=== PATIENT | female | born 1990 | race Caucasian/White ===

== ENCOUNTER 2025-04-14 08:58 | Outpatient (REF) | payer MEDICAID, SELFPAY ==
--- OUTSIDE RECORDS SUMMARY | 2025-04-09 10:45 | XMS_ITS | Encounter Summary ---
Author Organization [employer] Address [address] [place] [address] [facility] [place] [address] Care Team Providers Care Labeling Specialist Name Role Phone Miller Bynum CNP Primary Care Provider [phone] Reason for Referral * Imaging (Routine) - Authorized Specialty Diagnoses / Procedures Referred By Elias tolentino Referred To Contact Radiology Diagnoses History of malignant neoplasm of appendix Procedures CT Abdomen Pelvis w/ Contrast Miller Bynum CNP [address] [place] [address] Phone: tel: fax: [facility] [address] [facility], [address] [place] [address] Phone: tel: fax: Referral ID Status Reason Start Date Expiration Date V isits Requested Visits Authorized [id number] Authorized 04/09/2025 04/09/2026 1 1 Encounter Details Date Type Department Care Team (Late st Contact Info) Description 04/09/2025 10:45 AM EST Office Visit [facility] [address] [place] [address] Miller Bynum CNP [address] [place] [address] Encounter to establish care (Primary Dx); History of malignant neoplasm of appendix; Other form of scoliosis of thoracic spine; Encounter for immunization; Dietary counseling; Exercise counseling; Class 2 obesity with body mass index (BMI) of 36.0 to 36.9 in adult, unspecified obesity type, unspecified whether serious comorbidity present; Encounter for screening examination for sexually transmitted disease Social History Tobacco Use Types Packs/Day Years Used Date Smoking Tobacco: Never Passive Smoke Exposure: Never Smokeless Tobacco: Never Tobacco Cessation:Counseling Given: Not Answered Depression Answer Date Recorded Patient Health Questionnaire-9 Score 1 04/09/2025 Patient Health Questionnaire-9 Score 1 04/09/2025 Last PHQ-9: Questionnaire Data Not on file 1 06/09/2024 Housing Stability Answer Date Recorded What is your housing situation today? I have mignon guzman 04/09/[address] you li ve. Do you have problems with any of the following? None of the above 04/09/2025 Food Insecurity Answer Date Recorded Within the past 12 months, y ou worried that your food would run out before you got money to buy more: Never True 04/09/2025 Within the past 12 months,th e food you bought just didn't last and you didn't have enough money to get more: Never True Transportation Answer Date Recorded In the past 12 months, has l ack of transportation kept you from medical appts, meetings, work or from getting things needed for daily living? No 04/09/2025 Utilities Answer Date Recorded In the past 12 months, has t he electric, gas, oil or water company threatened to shut off services in your home? No 04/09/2025 Depression Answer Date Recorded Patient Health Questionnaire-2 Score 0 04/09/2025 Internet Access Answer Date Recorded Internet Access Q1 Yes 04/09/2025 Internet Access Q2 Not on file 04/09/2025 Comments No Intention Date Recorded No desire to become (finding) 1 06/09/2024 Sex and Gender Information Value Date Recorded Sex Assigned at Female 03/02/2024 11:33 AM EDT Legal Sex Female 6:52 PM EDT Gender Identity Female 03/02/2024 11:33 AM EDT Sexual Orientation Straight 03/02/2024 11 :34 AM EDT documented as of this encounter Last Filed Vital Signs Vital Sign Reading Time Taken Comments Blood Pressure 126/84 04/09/2025 10:31 AM EST Pulse 80 04/09/2025 10:31 AM EST Temperature 36.7 C (98 F) 04/09/2025 10:31 AM EST Respiratory Rate 16 04/09/2025 10:31 AM EST Oxygen Saturation 99% 04/09/2025 10:31 AM EST Inhaled Oxygen Concentration - - Weight 93 kg (205 lb) 04/09/2025 10:31 AM EST Height 160 cm (5' 3 ) 04/09/2025 10:31 AM EST Body Mass Index 36.31 04/09/2025 10:31 AM EST documented in this encounter Functional Status * Over the past 2 weeks, how often have you been bothered by any of the following problems? Question Answer Date of Assessment Author Patient Health Questionnaire -2 Score 0 04/09/2025 11:13 AM EST Sa chai Mehta [place] * Little interest or pleasure in doing things Answer Date of Assessment Author Not at all 04/09/2025 11:13 AM Sosa Dempsey [place] * Feeling down, depressed, or hopeless Answer Date of Assessment Author Not at all 04/09/2025 11:13 AM Sosa Dempsey [place] * Trouble falling or staying asleep, or sleeping too much Answer Date of Assessment Author Not at all 04/09/2025 11:13 AM Sosa Dempsey [place] * Feeling tired or having little energy Answer Date of Assessment Author Several days 04/09/2025 11:13 AM Sosa Dempsey MA * Poor appetite or overeating Answer Date of Assessment Author Not at all 04/09/2025 11:13 AM Sosa Dempsey MA * Feeling bad about yourself - or that you are a failure or have let yourself or your family down Answer Date of Assessment Author Not at all 04/09/2025 11:13 AM Sosa Dempsey MA * Trouble concentrating on things, such as reading the newspaper or watching television Answer Date of Assessment Author Not at all 04/09/2025 11:13 AM Sosa Dempsey MA * Moving or speaking so slowly that other people could have noticed? Or the opposite - being so fidgety or restless that you have been moving around a lot more than usual. Answer Date of Assessment Author Not at all 04/09/2025 11:13 AM Sosa Dempsey MA * Thoughts that you would be better off or hurting yourself in some way Answer Date of Assessment Author Not at all 04/09/2025 11:13 AM Sosa Dempsey MA * Patient Health Questionnaire-9 Score Answer Date of Assessment Author 1 04/09/2025 11:13 AM Sosa Dempsey MA * Over the last 2 weeks, how often have you been bothered by any of the following problems? Question Answer Date of Assessment Author Feeling nervous, anxious, or on edge 0 04/09/2025 11:13 AM Sa chai Carrera MA Not being able to stop or control worrying 0 04/09/2025 11:13 AM Sa chai Carrera MA Worrying too much about different things 0 04/09/2025 11:13 AM Sa chai Carrera MA Trouble relaxing 0 04/09/2025 11:13 AM Sosa Carrera MA Being so restless that it is hard to sit still 0 04/09/2025 11:13 AM Sa chai Carrera MA Becoming easily annoyed or irritable 0 04/09/2025 11:13 AM Sa chai Carrera MA Feeling afraid as if somethi ng awful might happen 0 04/09/2025 11:13 AM Sa chai Carrera MA AUGUSTINE-7 Total Score 0 04/09/2025 11:13 AM Sosa Carrera MA * How difficult have these problems made it for you to do your work, take care of things at home, or get along with other people? Answer Date of Assessment Author Not difficult at all 04/09/2025 11:13 AM Sosa Doll MA documented as of this encounter Progress Notes * Miller Bynum CNP - 04/09/2025 10:45 AM EST Subjective: Ester Butt is a 34 y.o. female with PMH of RLE DVT, obesity, thoracic scoliosis, neuroendocrine neoplasm of appendix, herpes simplex virus 2, who presents to the office for a new patient visit. Previous PCP unknown. Interim history: History of RLE DVT was on initial lovenox followed by maribelsusana for one time, this happened 5 years ago, she was then disontinued on anticoags as condition resolved. Current concerns: Would like update to scoliosis survery Would like updated imaging of appendix. Pt reports she had history of mass on her appendix and she had appendectomy in - pt unsure of exact date. She had update CT in 2022 to r/o metastatic disease. (See below) She denies any current symptoms of abdominal pain, unintended weight loss. Impression 1. Status post appendectomy metastatic disease in the abdomen or pelvis. 2. Increased hepatic steatosis. 3. Postovulatory appearance to the uterus with a left-sided corpus luteum. 4.. Additional details as above. Problem List[1] Surgical History[2] Family History[3] Social History Living situation: has secure housing Employment/Education: not reported Diet/exercise: Substance use: -alcohol : 1-2 drinks socially -tobacco : none -opioids : none Sexual activity: AMAB partner Contraception: none, partner has vasectomy scheduled for next month. Mental health: Patient Health Questionnaire-9 Score: 1 (04/09/2025 11:13 AM) Patient Health Questionnaire-2 Score: 0 (04/09/2025 11:13 AM) Thoughts that you would be better off or hurting yourself in some way: Not at all (04/09/2025 11:13 AM) AUGUSTINE-7 Total Score: 0 (04/09/2025 11:13 AM) Patient's last menstrual period was 03/23/2025. Regular occurring each month Allergies[4] Review of Systems Vitals: 04/09/25 1031 BP: 126/84 BP Location: Left arm Patient Position: Sitting BP Cuff Size: Large adult Pulse: 80 Resp: 16 Temp: 98 ??F (36.7 ??C) TempSrc: Oral SpO2: 99% Weight: 205 lb (93 kg) Height: 5' 3 (1.6 m) Physical Exam Constitutional: Appearance: Normal appearance. She is normal weight. Cardiovascular: Rate and Rhythm: Normal rate and regular rhythm. Pulses: Normal pulses. Heart sounds: Normal heart sounds. No murmur heard. No friction rub. No gallop. Pulmonary: Effort: Pulmonary effort is normal. No respiratory distress. Breath sounds: Normal breath sounds. No wheezing or rales. Neurological: General: No focal deficit present. Mental Status: She is alert and oriented to person, place, and time. Psychiatric: Mood and Affect: Mood normal. Behavior: Behavior normal. Thought Content: Thought content normal. Judgment: Judgment normal. Assessment & Plan Encounter to establish care 34 y/o F with history of scoliosis and neuroendocrine neoplasm of appendix with no acute abnormalities on exam Routine Screening and Health Maintenance Optometry: No, will request appointment at [facility] vision [facility]. Dentist: Yes ASCVD risk: 34 y.o. femaleobese Lab Review: orders written for new lab studies as appropriate; see orders Routine Cancer Screening Breast CA: not yet indicated based on age Cervical CA: last pap 08/2018 NILM, due, will complete at f/u Colon CA: not yet indicated based on age Lung CA: Orders: HIV-1/2 Antigen and Antibodies, Fourth Generation, with Reflexes; Future Hepatitis C Antibody with Reflex to HCV, RNA, Quantitative, Real-Time PCR; Future CBC auto differential; Future Comprehensive Metabolic Panel; Future Lipid Panel, Standard; Future Hemoglobin A1c; Future History of malignant neoplasm of appendix Will update imaging to r/o metastatic disease. Orders: CT Abdomen Pelvis w/ Contrast; Future Other form of scoliosis of thoracic spine Will update XR scoliosis survery Orders: XR Scoliosis survey; Future Encounter for immunization Orders: FLU VACCINE TRIVALENT [id number] (Fluarix) 19 yrs + Dietary counseling Dietary Recommendations: Fruits, vegetables, whole grains, protein foods, and fat-free or low-fat dairy products are healthychoices. Eat different types of protein foods in your diet. This can include seafood, lean meats, poultry, beans, peas, lentils, nuts, seeds, soy products, and eggs. Limit foods and beverages higher in added sugars, saturated fat, and sodium. Exercise counseling Exercise Recommendations: At least 150 minutes of moderate-intensity physical activity per week, or an equivalent combinationof moderate- and vigorous-intensity activity Class 2 obesity with body mass index (BMI) of 36.0 to 36.9 in adult, unspecified obesity type, unspecified whether serious comorbidity present Diet and exercise counseling provided. Current Medications[5] Immunization History Administered Date(s) Administered Influenza Injectable Quadrivalant Preservative Free IIV4 MDCK 01/27/2020 Influenza injectable quadrivalent preservative free 04/30/2022 Influenza, seasonal, injectable, preservative free 03/09/2010, 02/06/2012, 02/24/2013, 05/27/2013, 03/02/2015, 06/15/2016, 04/09/2025 PPD Test 10/26/2013, 07/21/2014, 08/16/2015, 06/05/2016 Tdap 12/17/2011, 03/31/2015, 02/23/2020, 08/20/2022 Follow up in about 1 month (around 05/09/2025) for pap smear . [1] Patient Active Problem List Diagnosis Changing nevus Enlarged thyroid gland History of herpes simplex type 2 infection Neuroendocrine neoplasm of appendix (HCC) Obesity (BMI 30.0-34.9) Pityriasis Right leg DVT (CMS/HCC) (HCC) Thoracic scoliosis [2] Past Surgical History: Procedure Laterality Date APPENDECTOMY 04/09/2019 [3] Family History Problem Relation Name Age of Onset Hypertension Mother Diabetes Mother Diabetes Daughter Diabetes Maternal Grandmother [4] No Known Allergies [5] No current outpatient medications on file. No current facility-administered medications for this visit. documented in this encounter Miscellaneous Notes * Assessment & Plan Note - Miller Bynum CNP - 04/09/2025 10:45 AM EST Associated Problem(s): Thoracic scoliosis Will update XR scoliosis survery Orders: XR Scoliosis survey; Future * Addendum Note - Miller Bynum CNP - 04/09/2025 10:45 AM ESTAddended by: MILLER BYNUM on: 04/09/2025 11:33 AM Modules accepted: Orders documented in this encounter Plan of Treatment Upcoming Encounters Date Type Department Care Team (Late st Contact Info) Description 05/13/2025 9:00 AM EST Procedure Visit [facility] [address] [place] [address] Fletcher Chandrakantbullfrancisco, [employer] MANAGER [address] [place] [address] Scheduled Orders Name Type Priority Associated Diagnoses Orde r Schedule HIV-1/2 Antigen and Antibodies, Fourth Generation, with Reflexes Lab Routine Encounter to establish care Expected: 04/09/2025 (Approximate), Expires: 04/09/2026 Hepatitis C Antibody with Reflex to HCV, RNA, Quantitative, Real-Time PCR Lab Routine Encounter to establish care Expected: 04/09/2025, Expires: 04/09/2026 CT Abdomen Pelvis w/ Contrast Imaging Routine History of malignant neoplasm of appendix Expected: 04/09/2025, Expires: 04/09/2026 XR Scoliosis survey Imaging Routine Other form of scoliosis of thoracic spine Expected: 04/09/2025, Expires: 04/09/2026 Chlamydia/N. Gonorrhoeae RNA, TMA, Vaginal Microbiology Routine Encounter for screening examination for sexually transmitted disease Ordered: 04/09/2025 RPR (Monitor) with Reflex to Titer Lab Routine Encounter for screening examination for sexually transmitted disease Expected: 04/09/2025, Expires: 04/09/2026 Hepatitis B Surface Antibody, Qualitative Lab Routine Encounter for screening examination for sexually transmitted disease Expected: 04/09/2025 (Approximate), Expires: 04/09/2026 Hepatitis B Core Antibody, Total Lab Routine Encounter for screening examination for sexually transmitted disease Expected: 04/09/2025 (Approximate), Expires: 04/09/2026 Hepatitis B surface antigen, EIA Lab Routine Encounter for screening examination for sexually transmitted disease Expected: 04/09/2025 (Approximate), Expires: 04/09/2026 documented as of this encounter Procedures Procedure Name Priority Date/Time Associated Diagnosis Comments CBC WITH AUTO DIFFERENTIAL Routine 04/14/2025 9:02 AM EST Encounter to establish care HEMOGLOBIN A1C Routine 04/14/2025 9:02 AM EST Encounter to establish care LIPID PANEL, STANDARD Routine 04/14/2025 9:02 AM EST Encounter to establish care COMPREHENSIVE METABOLIC PANEL Routine 04/14/2025 9:02 AM EST Encounter to establish care documented in this encounter Results * Hemoglobin A1c (04/14/2025 9:02 AM EST) Hemoglobin A1c 5.5 <6.0 % [facility] Comment:Hemoglobin A1C Refer ence Range Adults: 4.8 - 6.0 % Non diabetic: < 6.0 % Goal: < 7.0 %Additional Action Suggested: > 8.0 %Note: Hemoglobin A1c results are invalid for patients with abnormal amounts of HbF. Blood transfusions may impact the HbA1c concentration in the patient sample. Estimated Average Glucose 111 mg/dL [facility] Comment:eAG = Estimated ave rage glucose which is %A1C expressed asaverage glucose, using the formula of the L2O-QngpnhcGrfjysz Glucose study (ADAG), Diabetes Care, Vol.31,#8,Dec. 2007 Blood Venous blood specimen / Unknown 04/14/2025 9:02 AM EST 04/14/2025 2:06 PM EST [facility] LAB BLOOD ORDERABLES Chio l Result [facility] [address] [place] [phone] * (ABNORMAL) Lipid Panel, Standard (04/14/2025 9:02 AM EST) Triglycerides 153(H) <150 mg/dL [facility] Comment:Desirable Triglyceri de: less than 150 mg/dLBorderline High Triglyceride 150-199 mg/dLHigh Triglyceride: 200-499 mg/dLVery High Triglyceride: greater than or equal to 5OO mg/dL Cholesterol 194 <200 mg/dL [facility] Comment:Desirable Cholestero l: less than 200 mg/dLBorderline High Cholesterol: 200-239 mg/dLHigh Cholesterol: greater than 239 mg/dL LDL Cholesterol Calculated 129(H) <100 mg/dL [facility] Comment:Desirable LDL: less than 100 mg/dLNear Optimal/Above Optimal LDL: 110- 129 mg/dLBorderline High LDL: 130-159 mg/dLHigh LDL: 160-189 mg/dLVery High LDL: greater than or equal to 190 mg/dL HDL Cholesterol 35(L) >40 mg/dL [facility] Comment:Desirable HDL: great er than 40 mg/dL Note: This HDL assay may give artificially low results in patients with liver disease. Blood Venous blood specimen / Unknown 04/14/2025 9:02 AM EST 04/14/2025 2:06 PM EST Chandrakantfrancisco Bynum [facility] LAB BLOOD ORDERABLES Chio stanton Result [facility] [address] [place] [address] [phone] * (ABNORMAL) Comprehensive Metabolic Panel (04/14/2025 9:02 AM EST) Sodium 139 135 - 145 mmol/L [facility] Potassium 4.3 3.3 - 5.1 mmol/L [facility] Chloride 107 96 - 108 mmol/L [facility] Carbon Dioxide 26 22 - 29 mmol/L [facility] Anion Gap 10(L) 12 - 20 [facility] Urea Nitrogen (BUN) 9 9 - 16 mg/dL [facility] Creatinine, Serum 0.63 0.5 - 1.4 mg/dL [facility] Estimated Glomerular Filt Rate >60 [facility] Comment:Chronic Kidney Disea se: Estimated GFR < 60 mL/min/[id number] Kidney Disease: Estimated GFR < 15 mL/min/1.73m2 Glucose 88 60 - 115 mg/dL [facility] Calcium 9.3 8.4 - 10.2 mg/dL [facility] Bilirubin, Total 0.3 0.0 - 1.0 mg/dL [facility] Aspartate Amino Transferase 32(H) 5 - 31 U/L [facility] Alanine Aminotransferase 28 0 - 31 U/L [facility] Total Protein 7.4 6.5 - 8.0 g/dL [facility] Albumin Level 4.3 3.5 - 5.0 g/dL [facility] Alkaline Phosphatase 61 39 - 117 U/L [facility] Blood Venous blood specimen / Unknown 04/14/2025 9:02 AM EST 04/14/2025 2:06 PM EST Chandrakantfrancisco [facility] LAB BLOOD ORDERABLES Chio l Result [facility] [address] [place] [address] [phone] * CBC auto differential (04/14/2025 9:02 AM EST) White Blood Count 6.4 4.8 - 10.8 X10*3/uL [facility] Red Blood Count 4.44 4.20 - 5.50 X10*6/uL [facility] Hemoglobin 12.3 12.0 - 16.0 g/dl [facility] Hematocrit 38.1 37.0 - 47.0 % [facility] Mean Corpuscular Volume 85.8 80.0 - 98.0 fL [facility] Mean Corpuscular Hemoglobin 27.7 27.0 - 33.0 pg [facility] Mean Corpuscular HGB Conc 32.3 31.0 - 35.0 g/dl [facility] Red Cell Distribution Width 13.8 11.0 - 16.0 % [facility] Platelet Count 232 160 - 400 X10*3/uL [facility] Mean Platelet Volume 11.6 9.4 - 12.3 fL [facility] Neutrophils Percent Auto 48.9 45 - 73 % [facility] Imm Gran Pct Auto 0.3 0.0 - 0.4 % [facility] Lymphocytes Percent Auto 40.0 20 - 40 % [facility] Monocytes Percent Auto 7.8 2 - 11 % [facility] Eosinophils Percent Auto 2.5 0 - 4 % [facility] Basophils Percent Auto 0.5 0 - 2 % [facility] NRBC Pct Auto 0.0 0.0 - 0.2 /100WBC [facility] Neutrophils Absolute Auto 3.1 2.0 - 8.3 x10*3/uL [facility] Imm Gran Abs Auto 0.02 0.00 - 0.03 X10*3/uL [facility] Lymphocytes Absolute Auto 2.6 1.2 - 4.9 X10*3/uL [facility] Monocytes Absolute Auto 0.5 0.1 - 1.2 X10*3/uL [facility] Eosinophils Absolute Auto 0.2 0.0 - 0.4 X10*3/uL [facility] Basophils Absolute Auto 0.0 0.0 - 0.2 X10*3/uL [facility] NRBC Abs Auto 0.000 0.0 - 0.012 X10*3/uL [facility] Blood Venous blood specimen / Unknown 04/14/2025 9:02 AM EST 04/14/2025 2:06 PM EST Miller Bynum [facility] LAB BLOOD ORDERABLES Chio l Result Performing Organization Address City/State/[facility] Co de Phone Number [facility] [address] [place] [address] [phone] documented in this encounter Visit Diagnoses Diagnosis Encounter to establish care- Primary 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 of thoracic spine Encounter for immunization Dietary counseling Dietary surveillance and counseling Exercise counseling Class 2 obesity with body mass index (BMI) of 36.0 to 36.9 in adult, unspecified obesity type, unspecified whether serious comorbidity present Encounter for screening examination for sexually transmitted disease documented in this encounter Additional Health Concerns Assessment Noted Time PHQ-9 Depression Total Score: 1 04/09/20 11:13 AM EST documented as of this encounter Care Teams Labeling Specialist Relationship Specialty Start Date End Date Miller Bynum CNP [address] [place] [address] PCP - General Family Medicine 04/09/25 documented as of this encounter
[2025-04-14 14:11] LABS: MANUAL DIFF FLAG NO
[2025-04-14 14:16] LABS: Hematocrit 38.1 % (37.0-47.0); Hemoglobin 12.3 g/dl (12.0-16.0); Imm Gran Abs Auto 0.02 X10*3/uL (0.00-0.03); Imm Gran Pct Auto 0.3 % (0.0-0.4); Lymphocytes Absolute Auto 2.6 X10*3/uL (1.2-4.9); Mean Corpuscular HGB Conc 32.3 g/dl (31.0-35.0); Mean Corpuscular Hemoglobin 27.7 pg (27.0-33.0); Mean Corpuscular Volume 85.8 fL (80.0-98.0); NRBC Abs Auto 0.000 X10*3/uL (0.0-0.012); NRBC Pct Auto 0.0 /100WBC (0.0-0.2); Platelet Count 232 X10*3/uL (160-400); Red Blood Count 4.44 X10*6/uL (4.20-5.50); White Blood Count 6.4 X10*3/uL (4.8-10.8)
[2025-04-14 15:41] LABS: Alanine Aminotransferase 28 U/L (0-31); Albumin Level 4.3 g/dL (3.5-5.0); Alkaline Phosphatase 61 U/L (39-117); Anion Gap 10 (12-20); Aspartate Amino Transferase 32 U/L (5-31); Blood Urea Nitrogen 9 mg/dL (9-16); Calcium 9.3 mg/dL (8.4-10.2); Carbon Dioxide 26 mmol/L (22-29); Chloride 107 mmol/L (96-108); Cholesterol 194 mg/dL (<200); Estimated Glomerular Filt Rate > 60; HDL Cholesterol 35 mg/dL (>40); Potassium 4.3 mmol/L (3.3-5.1); Sodium 139 mmol/L (135-145); Total Protein 7.4 g/dL (6.5-8.0); Triglycerides 153 mg/dL (<150)
--- OUTSIDE RECORDS SUMMARY | 2025-04-14 16:49 | XMS_ITS | Encounter Summary ---
Author Organization [facility] Address [address] [place] [address] Care Team Providers Care Equity Manager Name Role Phone [facility] Of Primary Care Provider Encounter Details Date Type Department Care Team (Late st Contact Info) Description 03/15/2022 Community Orders [facility] EpicCare Link [address] [place] [address] Nichole Hicks MD [address] [place] [address] Current with uncertain date of last menstrual period with multiple normal prior pregnancies (Primary Dx) Social History Tobacco Use Types Packs/Day Years Used Date Smoking Tobacco: Never Smokeless Tobacco: Never Comments:: Alcohol Use Standard Drinks/Week Comments No 0 (1 standard drink = 0.6 oz pur e alcohol) Comments No Sex and Gender Information Value Date Recorded Sex Assigned at Female 11/22/2018 5:47 PM EDT Legal Sex Female 8:18 AM EDT Gender Identity Female 07/07/2017 8:51 PM EST Sexual Orientation Straight 11/22/2018 5: 47 PM EDT 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 * US OB MFM (04/09/2022 1:03 PM EST) Anatomical Region Laterality Modality Body, Pelvis N/A Ultrasound 04/09/2022 1:03 PM EST Impressions 04/09/2022 1:08 PM EST The patient was referred for confirmation of viability and establishment of dates. IMPRESSION: Viable, velasquez intrauterine gestation. Size not consistent with menstrual dating. I recommend utilizing today's ultrasound to date the . Thank you for involving us in the care of this patient. Please do not hesitate to contact us with any questions or concerns. Narrative 04/09/2022 1:08 PM EST OBSTETRICS REPORT (Signed Final 04/09/2022 01:08 pm) PATIENT INFO: ID #: [id number] : [birth year] (31 yrs)(F) Name: JUAN INMAN Visit Date: 04/09/2022 01:03 pm PERFORMED BY: Attending: Roma Cox MD Performed By: Tasha Miller [facility] Referred By: NICHOLE HICKS Location: [facility] Diagnosis and O SERVICE(S) PROVIDED: <14 weeks [address] INDICATIONS: 8 weeks gestation of Z3A.08 Encounter for screening for Z36.87 uncertain dates GESTATIONAL AGE: LMP: 10w 4d Date: 01/25/22 BRENNEN: 11/01/22 Best: 8w 4d Det. By: Eduin Beach BRENNEN: 11/15/22 (04/09/22) EVALUATION: Num Of Fetuses: 1 Preg. Location: Intrauterine Gest. Sac: Seen Yolk Sac: Seen Pole: Seen Heart Rate(bpm): 169 Cardiac Activity: Seen Placenta: Too early to evaluate P. Cord Insertion: Not visualized Amniotic Fluid ROSALEE FV: Normal BIOMETRY: CRL: 20 mm G.Age: 8w 4d BRENNEN: 11/15/22 CERVIX UTERUS ADNEXA: Cervix Long and closed transabdominally. Uterus Within Normal Limits Right Ovary Not visualized due to overlying bowel. Left Ovary Not visualized due to overlying bowel. Cul De Sac No fluid noted Adnexa Both adnexae appeared unremarkable. COMMENTS: Approach: Transabdominal Roma Cox MD Electronically Signed Final Report 04/09/2022 01:08 pm Procedure Note Roma Cox MD - 04/09/2022 OBSTETRICS REPORT (Signed Final 04/09/2022 01:08 pm) PATIENT INFO: ID #: [id number] : [birth year] (31 yrs)(F) Name: JUAN INMAN Visit Date: 04/09/2022 01:03 pm PERFORMED BY: Attending: Roma Cox MD Performed By: Tasha Miller RDMS Referred By: NICHOLE HICKS Location: [facility] Diagnosis and O SERVICE(S) PROVIDED: <14 weeks [address] INDICATIONS: 8 weeks gestation of Z3A.08 Encounter for screening for Z36.87 uncertain dates GESTATIONAL AGE: LMP: 10w 4d Date: 01/25/22 BRENNEN: 11/01/22 Best: 8w 4d Det. By: David/Keke Beach BRENNEN: 11/15/22 (04/09/22) EVALUATION: Num Of Fetuses: 1 Preg. Location: Intrauterine Gest. Sac: Seen Yolk Sac: Seen Pole: Seen Heart Rate(bpm): 169 Cardiac Activity: Seen Placenta: Too early to evaluate P. Cord Insertion: Not visualized Amniotic Fluid ROSALEE FV: Normal BIOMETRY: CRL: 20 mm G.Age: 8w 4d BRENNEN: 11/15/22 CERVIX UTERUS ADNEXA: Cervix Long and closed transabdominally. Uterus Within Normal Limits Right Ovary Not visualized due to overlying bowel. Left Ovary Not visualized due to overlying bowel. Cul De Sac No fluid noted Adnexa Both adnexae appeared unremarkable. COMMENTS: Approach: Transabdominal Roma Cox MD Electronically Signed Final Report 04/09/2022 01:08 pm IMPRESSION: The patient was referred for confirmation of viability and establishment of dates. IMPRESSION: Viable, velasquez intrauterine gestation. Size not consistent with menstrual dating. I recommend utilizing today's ultrasound to date the . Thank you for involving us in the care of this patient. Please do not hesitate to contact us with any questions or concerns. us Nichole Hicks MD IMG OB US PROCEDURES Fin al Result documented in this encounter Visit Diagnoses Diagnosis Current with uncertain date of last menstrual period with multiple normal prior pregnancies (HCC)- Primary Current with uncertain date of last menstrual period with multiple normal prior pregnancies (HCC) 8 weeks gestation of (HCC) Encounter for screening for uncertain dates (HCC) documented in this encounter Care Teams Equity Manager Relationship Specialty Start Date End Date [facility] [address] [place] [id number] PCP - General Family Medicine 04/16/23 documented as of this encounter
--- OUTSIDE RECORDS SUMMARY | 2025-04-14 16:49 | XMS_ITS | Encounter Summary ---
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 * US OB MFM (01/21/2020 1:46 PM EDT) Anatomical Region Laterality Modality Body, Pelvis N/A Ultrasound 01/21/2020 Narrative 01/21/2020 12:00 AM EDT Obstetric Ultrasound Report Detailed Survey Referral from: IDA BHANDARI MD [facility] Diagnosis and Obstetric Ultras [address] [place] [address] Facsimile PATIENT INFORMATION: Name: JUAN INMAN MR#: [id number] Age: 29 y/o Exam Date: 01/21/2020 : 1990 Visit #: 3 LMP: 08/15/2019 Location: [facility] # Fetuses: 1 INDICATIONS: Z36.3 Screening for malformations, Follow-up anatomy survey DATING: Assigned GA GA by LMP GA by US (LMP) BRENNEN 22 5/7 wks 22 3/7 wks 22 5/7 wks 05/21/20 BIOMETRY: BPD: 55.1 mm 22 6/7 wks HC: 203.3 mm 22 3/7 wks (34%) (41%) Femur: 38.9 mm 22 3/7 wks AC: 185.2 mm 23 2/7 wks (63%) (32%) Ceph Index:0.76 (74 - 83) HC/AC: 1.1 (0.99-1.23) EFW: 544 gms 1 lbs 3 oz (%) Cerebellum: 26.0 mm (>90%) Cisterna Magna: 5.0 mm Nuchal Fold: 5.34 mm Heart Rate:147 bpm FL/AC: 0.21 FL/BPD: 0.70 PRESENTATION/CORD/PLACENTA/FLUID/CERVIX: Presentation: Cephalic Umbilical Cord: 3 Vessel Cord. Normal insertion into the placenta. Placenta: Posterior Amniotic Fluid: Maximum Vertical Pocket = 3.2 cm. Subjective AF Volume: Normal. Cervix: Normal ANATOMICAL SURVEY: Seen (A full anatomical exam was previously performed.) Intracranial Anatomy Lateral Ventricles Cerebellum Cisterna Magna Midline Falx Cavum Septum Pellucidum Profile Four Chamber View RVOT LVOT Aortic Arch Stomach Kidney - Left Kidney - Right Bladder EFW Summary Table Exam Date Fetus # EFW Percentile --------- ------- ---- 01/21/20 1 544 % 12/28/19 1 295 % AMNIOTIC FLUID VOLUME: NORMAL Subjective AF Volume: Normal. Maximum Vertical Pocket: 3.2 cm CERVIX: Visualized COMMENTS: The patient was referred for a follow-up to a suboptimal anatomy survey. On today s transabdominal scan, the missing views were able to be obtained and were within normal limits. The anatomy survey is now complete. The estimated weight is normal for gestational age. The amniotic fluid level is also normal by [facility] criteria. Like that WALLY NUNEZ MD, PhD Procedure Note Wally Nunez MD PhD - 01/21/2020 Obstetric Ultrasound Report Detailed Survey Referral from: IDA BHANDARI MD [facility] Diagnosis and ObstetricUltras [address] [place], [place] Facsimile PATIENT INFORMATION: Name: JUAN INMAN MR#: [id number] Age: 29 y/o Exam Date: 01/21/2020 : 1990 Visit #: 3 LMP: 08/15/2019 Location: [facility] # Fetuses: 1 INDICATIONS: Z36.3 Screening for malformations, Follow-up anatomy survey DATING: Assigned GA GA by LMP GA by US (LMP)BRENNEN 22 5/7 wks 22 3/7 wks 22 5/7 wks107/22/19 BIOMETRY: BPD: 55.1 mm 22 6/7 wks HC: 203.3 mm 22 3/7 wks(34%) (41%) Femur: 38.9 mm 22 3/7 wks AC: 185.2 mm 23 2/7 wks(63%) (32%) Ceph Index:0.76 (74 - 83) HC/AC: 1.1 (0.99-1.23) EFW: 544 gms 1 lbs 3 oz (%) Cerebellum: 26.0 mm (>90%) Cisterna Magna: 5.0 mm Nuchal Fold: 5.34 mm Heart Rate:147 bpm FL/AC: 0.21 FL/BPD: 0.70 PRESENTATION/CORD/PLACENTA/FLUID/CERVIX: Presentation: Cephalic Umbilical Cord: 3 Vessel Cord. Normal insertion into the placenta. Placenta: Posterior Amniotic Fluid: Maximum Vertical Pocket = 3.2 cm. Subjective AFVolume: Normal. Cervix: Normal ANATOMICAL SURVEY: Seen (A full anatomical exam was previously performed.) Intracranial Anatomy Lateral Ventricles Cerebellum Cisterna Magna Midline Falx Cavum Septum Pellucidum Profile Four Chamber View RVOT LVOT Aortic Arch Stomach Kidney - Left Kidney - Right Bladder EFW Summary Table Exam Date Fetus # EFW Percentile --------- ------- ---- 01/21/20 1 544 % 12/28/19 1 295 % AMNIOTIC FLUID VOLUME: NORMAL Subjective AF Volume: Normal. Maximum VerticalPocket: 3.2 cm CERVIX: Visualized COMMENTS: The patient was referred for a follow-up to a medical center enterprise anatomysurvey. On today s transabdominal scan, the missing views were able to be obtainedand were within normal limits. The anatomy survey is now complete. Theestimated weight is normal for gestational age. The amniotic fluid level isalso normal by MVP criteria. Like that WALLY NUNEZ MD, PhD us Ida Bhandari MD IMG OB US PROCEDURES Final Result documented in this encounter Visit Diagnoses Diagnosis 20 weeks gestation of (HCC)- Primary 22 weeks gestation of (HCC) 20 weeks gestation of (HCC) documented in this encounter Care Teams Fire Boss Relationship Specialty Start Date End Date [facility] [address] [place] [address] PCP - General Family Medicine 04/16/23 documented as of this encounter
--- OUTSIDE RECORDS SUMMARY | 2025-04-14 16:49 | XMS_ITS | Encounter Summary ---
Author Organization [employer] Address [address] [place] [address] Care Team Providers Care Patient Account Analyst Name Role Phone Fletcher Chandrakantbullfrancisco GRETEL Primary Care Provider [phone] Encounter Details Date Type Department Care Team (Latest Contact Info) Description 04/09/2025 Travel Social History Tobacco Use Types Packs/Day Years Used Date Smoking Tobacco: Never Passive Smoke Exposure: Never Smokeless Tobacco: Never Depression Answer Date Recorded Patient Health Questionnaire-9 [...] Q2 Not on file 04/09/2025 Comments No Sex and Gender Information Value Date Recorded Sex Assigned at Female 03/02/2024 11:33 AM EDT Legal Sex Female 6:52 PM EDT Gender Identity Female 03/02/2024 11:33 AM EDT Sexual Orientation Straight 03/02/2024 11 :34 AM EDT documented as of this encounter Functional Status * Over the past 2 weeks, how often have you been bothered by any of the following problems? Question Answer Date of Assessment Author Patient Health Questionnaire -2 Score 0 04/09/2025 11:13 AM Sa chai Carrera [place] * Little interest or pleasure in [...] Doll [place] documented as of this encounter Plan of Treatment Upcoming Encounters Date Type Department Care Team (Late st Contact Info) Description 05/13/2025 9:00 AM EST Procedure Visit [facility] [address] [place] [address] Stella Byunm, [employer]YRUP MAK[employer] COOK [address] [place] [address] documented as of this encounter Visit Diagnoses Not on filedocumented in this encounter Additional Health Concerns Assessment Noted Time PHQ-9 Depression Total Score: 1 04/09/20 11:13 AM EST documented as of this encounter Care Teams Patient Account Analyst Relationship Specialty Start Date End Date Stella Bynum CNP [address] [place] [address] PCP - General Family Medicine 04/09/25 documented as of this encounter
--- OUTSIDE RECORDS SUMMARY | 2025-04-14 16:49 | XMS_ITS | Encounter Summary ---
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
--- OUTSIDE RECORDS SUMMARY | 2025-04-14 16:49 | XMS_ITS | Clinical Summary ---
Author Organization [facility] Address [address] [place] [address] Care Team Providers Care Nail Maker Name Role Phone [facility] Of Primary Care Provider Allergies No known active allergies Medications vitamin ( PLUS) 27 mg iron- 1 mg tablet Take 1 tablet by mouth daily. Active ibuprofen (MOTRIN) 600 mg tablet Take 1 tablet (600 mg total) by mouth every 6 hours as needed for pain. 60 tablet 1 11/17/2022 11:02 AM EDT 11/17/2022 Active acetaminophen (TYLENOL) 325 mg tablet Take 2 tablets (650 mg total) by mouth every 4 hours as needed for pain. 60 tablet 11/17/2022 11:02 AM EDT 11/17/2022 Active polyethylene glycol 3350 (MIRALAX) 17 gram packet Take 1 packet (17 g total) by mouth daily as needed for constipation . Mix powder in 4 to 8 oz of water, juice, coffee, or tea prior to administrati on. 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 Pityriasis 09/12/2017 Enlarged thyroid gland 09/12/2017 History of herpes simplex type 2 infection 03/06 Changing nevus 01/23/2017 Obesity 08/16/2016 Resolved Problems Problem Noted Date Diagnosed Date Resolved Date Encounter for induction of labor 05/21/2020 05/23/2020 Appendicitis, acute 11/22/2018 12/17/19 Rash of face 06/24/2017 09/12/2017 Yeast infection 05/14/2017 06/24/2017 Encounter for insertion of i ntrauterine contraceptive device (IUD) 03/06/2017 03/06/2017 Sebaceous cyst 01/23/2017 09/12/2017 Immunizations Immunization Administration Dates Next Due INFLUENZA, SPLIT VIRUS, TRIVALENT, PF ,03/02/2015,05/27/2013,2012,02/06/2012,03/09/2010 Tetanus Toxoid, Reduced Diph theria Toxoid, and Acellular Pertussis Vaccine, Adsorbed 03/31/2015,12/17/2011 Tuberculin Skin Test; Purifi ed Protein Derivative Solution, Intradermal 06/05/2016,08/16/2015,07/21/2014,2013 Family History Medical History Relation Name Comments Other Maternal Grandmother Family History of diabetes mellitus Hypothyroidism Mother Other Mother Maternal histor y of Essential Hypertension /Maternal history of Anemia Relation Name Status Comments Maternal Grandmother Mother Social History Tobacco Use Types Packs/Day Years [...] 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 on file Not on file Last Filed Vital Signs Vital Sign Reading Time Taken Comments Blood Pressure 116/76 11/17/2022 5:06 AM EDT Pulse 65 11/17/2022 5:06 AM EDT Temperature 36.7 C (98 F) 11/17/2022 5:06 AM EDT Respiratory Rate 18 11/17/2022 5:06 AM EDT Oxygen Saturation 97% 11/17/2022 5:06 AM EDT Inhaled Oxygen Concentration - - Weight 90.3 kg (199 lb) 11/15/2022 8:55 AM EDT Height 157.5 cm (5' 2 ) 11/15/2022 8:55 AM EDT Body Mass Index 36.4 11/15/2022 8:55 AM EDT Plan of Treatment Health Maintenance Due Date Last Done Comments Varicella Vaccines (1 of 2 - 13+ 2-dose series) 2002 Hepatitis B Vaccines (1 of 3 - 19+ 3-dose series) 2008 Pap Smear 08/15/2018 08/16/2015, 10/26, 07/31/2011, Additional history exists Cervical Cancer Screening 08/15/2020 HPV and Pap Smear 08/15/2020 08/16/2015, , 07/31/2011, Additional history exists Alcohol/Substance Use Screening 05/27/2024 Depression Screening and Follow-Up 05/27/2024 Social Drivers of Health Annual Screening 05/27/2024 Influenza Vaccine (#1) 2024 , 01/27/2020, 06/15/2016, Additional history exists COVID-19 Vaccine ( - 2024- season) 2025 DTaP,Tdap,and Td Vaccines (5 - Td or Tdap) 08/20/2032 08/20/2022, 02/23/2020, 03/31/2015, Additional history exists Hepatitis C Screening Completed 06/16/2013 , 02/12/2013, 12/27/2011, Additional history exists HIV Screening Completed 02/23/2020, 10/25, 06/07/2017, Additional history exists Pneumococcal Vaccine: Pediatric (0-5 Years) and At-Risk Patients (6-50 Years) Aged Out No longer eligible based on patient's age to complete this topic Procedures * Due to [place] state law, this organization might not be sharing negative HIV tests. Procedure Name Priority Date/Time Associated Diagnosis Comments PAP W/REFLEX HPV, CONVERSION Routine 08/16/2015 11:16 AM EDT HEPATITIS C ANTIBODY, CONVERSION Routine 06/16/2013 5:02 PM EST from Last 3 Months or Most Recently Relevant to Health Maintenance Results * Due to [place] state law, this organization might not be sharing negative HIV tests. * Pap w/Reflex HPV (08/16/2015 11:16 AM EDT) Path Procedure TPGS ([id number]) 1 Edited by: [id number] - 1117 JOSE [id number] - 0831 [facility]AT[facility] - [facility] Specimen Labeled As: 1 CERVICAL/ENDOCERVI JUAN CYTO MATERIAL - Edited by: [id number] - 1117 ANATOLIYMimi [facility]AT[facility] - [facility] Diagnosis ThinPrep Pap Test Adequacy: Satisfactory for evaluation; scant cellularity Interpretation: Negative for Intraepithelial Lesion or Malignancy Remarks/Recommenda tions: This is the result of a morphological screening test with an inherent possibility of a false negative interpretation. This Pap test was examined in accordance with the [facility] Cytopathology Laboratory written policy, which incorporates all CLIA mandates. Screening guidelines can be found in Am J Clin Pathol 2012;137:516-542. We endorse the practice guidelines developed by ASCCP and published in the Journal Lower Genital Tract Disease 17(5):S1-S27 (2013). This Pap test could not be examined by the ThinPrep Imaging System, [employer], [place], [place], and required a full manual screening. Edited by: [id number] - 4932 [facility] Gynecologic Clinical Data Specimen source:, THINPREP (CERVICAL AND ENDOCERVICAL) [facility] Gynecologic Clinical Data First date of LMP:, WITHIN LAST TWO WEEKS [facility]AT[facility]OLOG[facility] - [facility] Gynecologic Clinical Data Clinical Data:, [facility]AT[facility] Pathology Codes Client Order Code:, [email or web address] [facility]AT[facility] Pathology Codes Bill Type:, 3RD [employer] BILL[employer] [facility]ATOM[facility] - [facility] Marker 1 NUNO APONTE [facility] Marker 2 NILM,NILM [facility]ATOM[facility]OLOG[facility] - [facility] Cc Results To FABIOLA HUDSONINE [facility] [id number] [facility]ATOM[facility] - [facility] Signature REPORT SIGNED: NAYA PATTERSON 08/19/15 [facility] Sign Out Audit NAYA PATTERSON [id number] FINAL NEW ELIEZERAGUSTIN [id number] [facility]AT[facility] - [facility] Cytology / Unknown 6 11:16 AM EDT 08/18/2015 11:16 AM EDT us Nichole Darby MD LAB HISTORICAL RESULTS F inal Result [facility] [address] [place] [id number], * HEPATITIS C ANTIBODY, CONVERSION (06/16/2013 5:02 PM EST) Hepatitis C Antibody 0.18 <1.00 [facility] HCV Interpretation Negative [facility] Comment: Not infected with HCV, unless recent infection is suspected or other evidence exists to indicate HCV infection. 06/16/2013 5:02 PM EST 06/16/2013 5:31 PM EST us Xochitl Callahan NP LAB HISTORICAL RESULTS Final Result Performing Organization Address City/[facility]/ZIP Co de Phone Number [facility] [address] [place] [phone], from Last 3 Months or Most Recently Relevant to Health Maintenance Insurance [facility] Advance Directives Documents on File Type Date Recorded Patient Blind Escort Expl anation Advance Directive 07/08/2015 12:00 AM Adva nce Care Directives Advance Directive 07/08/2015 12:00 AM Adva nce Care Directives Health Care Proxy 07/05/2015 12:00 AM Healt h Care Proxy Advance Directive 06/22/2011 12:00 AM Adva nce Care Directives Advance Directive 06/22/2011 12:00 AM Adva nce Care Directives Advance Directive 06/16/2011 12:00 AM sf M edical Dec Making (Adv.Dir) Advance Directive 09/29/2009 12:00 AM sf Me dical Dec Making (Adv.Dir) * Full Code (Latest Code Status on File) Date Activated Date Inactivated Comments 11/16/2022 2:47 AM 11/17/2022 1:48 PM * Full Code Date Activated Date Inactivated Comments 05/21/2020 9:34 PM 05/23/2020 1:34 PM Care Teams Nail Maker Relationship Specialty Start Date End Date [facility] [address] [place] [address] PCP - General Family Medicine 04/16/23
--- OUTSIDE RECORDS SUMMARY | 2025-04-14 16:50 | XMS_ITS | Encounter Summary ---
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 * US OB MFM (09/04/2022 11:06 AM EDT) Anatomical Region Laterality Modality Body, Pelvis N/A Ultrasound 09/04/2022 11:0 7 AM EDT Impressions 09/04/2022 11:19 AM EDT This patient was referred for a growth assessment in the setting of measuring size greater than dates in the office and obesity. She has had a normal anatomic survey previously. IMPRESSION The estimated weight is large for gestational age at the 91st percentile. There is appropriate interval growth since the last scan. The amniotic fluid is normal by both ROSALEE and MVP criteria. Narrative 09/04/2022 11:19 AM EDT OBSTETRICS REPORT (Signed Final 09/04/2022 11:19 am) PATIENT INFO: ID #: [id number] : [birth year] (32 yrs)(F) Name: JUAN INMAN Visit Date: 09/04/2022 11:07 am PERFORMED BY: Attending: Elena Nunez MD PhD Performed By: Stacey Valenzuela RDMS Referred By: NICHOLE DARBY Location: [facility] Diagnosis and O SERVICE(S) PROVIDED: Follow-up exam 60343 INDICATIONS: 29 weeks gestation of Z3A.29 Obesity in , 3rd tri O99.213 Size GREATER THAN dates, 3rd tri O36.63X0 GESTATIONAL AGE: LMP: 31w 5d Date: 01/25/22 BRENNEN: 11/01/22 U/S Today: 30w 5d BRENNEN: 11/08/22 Best: 29w 5d Det. By: U/S Sadia Beach BRENNEN: 11/15/22 (04/09/22) EVALUATION: Num Of Fetuses: 1 Heart Rate(bpm): 136 Cardiac Activity: Seen Presentation: Cephalic Placenta: Posterior P. Cord Insertion: Not visualized Amniotic Fluid ROSALEE FV: Normal ROSALEE Sum(cm) %Tile Largest Pocket(cm) 13 38 4.2 RUQ(cm) RLQ(cm) LUQ(cm) LLQ(cm) 4.2 2.9 2 3.9 BIOMETRY: BPD: 72.4 mm G.Age: 29w 0d 17 % HC: 279.6 mm G.Age: 30w 4d 53 % AC: 268.2 mm G.Age: 30w 6d 79 % FL: 62.3 mm G.Age: 32w 2d > 97.5 % CI: 68.5 % 70 - 86 FL/HC: 22.3 % 19.2 - 21.4 HC/AC: 1.04 0.99 - 1.21 FL/BPD: 86.0 % 71 - 87 FL/AC: 23.2 % 20 - 24 Est. FW: 1711 gm 3 lb 12 oz 91 % ANATOMY: Cranium: Normal Cavum: Normal Posterior Fossa: Normal Diaphragm: Normal Stomach: Normal Cord Vessels: Normal 3-Vessel Cord Kidneys: Normal Bladder: Normal Other: A full anatomical study was previously performed. COMMENTS: Approach: Transabdominal Elena Nunez MD PHD Electronically Signed Final Report 09/04/2022 11:19 am Procedure Elena Dunlap MD PhD - 09/04/2022 OBSTETRICS REPORT (Signed Final 09/04/2022 11:19 am) PATIENT INFO: ID #: [id number] : [birth year] (32 yrs)(F) Name: JUAN INMAN Visit Date: 09/04/2022 11:07 am PERFORMED BY: Attending: Elena Nunez MD PhD Performed By: Stacey Valenzuela RDMS Referred By: NICHOLE DARBY Location: [facility] Diagnosis and O SERVICE(S) PROVIDED: Follow-up exam [id number] INDICATIONS: 29 weeks gestation of Z3A.29 Obesity in , 3rd tri O99.213 Size GREATER THAN dates, 3rd tri O36.63X0 GESTATIONAL AGE: LMP: 31w 5d Date: 01/25/22 BRENNEN: 11/01/22 U/S Today: 30w 5d BRENNEN: 11/08/22 Best: 29w 5d Det. By: U/S Sadia Beach BRENNEN: 11/15/22 (04/09/22) EVALUATION: Num Of Fetuses: 1 Heart Rate(bpm): 136 Cardiac Activity: Seen Presentation: Cephalic Placenta: Posterior P. Cord Insertion: Not visualized Amniotic Fluid ROSALEE FV: Normal ROSALEE Sum(cm) %Tile Largest Pocket(cm) 13 38 4.2 RUQ(cm) RLQ(cm) LUQ(cm) LLQ(cm) 4.2 2.9 2 3.9 BIOMETRY: BPD: 72.4 mm G.Age: 29w 0d 17 % HC: 279.6 mm G.Age: 30w 4d 53 % AC: 268.2 mm G.Age: 30w 6d 79 % FL: 62.3 mm G.Age: 32w 2d > 97.5 % CI: 68.5 % 70 - 86 FL/HC: 22.3 % 19.2 - 21.4 HC/AC: 1.04 0.99 - 1.21 FL/BPD: 86.0 % 71 - 87 FL/AC: 23.2 % 20 - 24 Est. FW: 1711 gm 3 lb 12 oz 91 % ANATOMY: Cranium: Normal Cavum: Normal Posterior Fossa: Normal Diaphragm: Normal Stomach: Normal Cord Vessels: Normal 3-Vessel Cord Kidneys: Normal Bladder: Normal Other: A full anatomical study was previously performed. COMMENTS: Approach: Transabdominal Elena Nunez MD PHD Electronically Signed Final Report 09/04/2022 11:19 am IMPRESSION: This patient was referred for a growth assessment in the setting of measuring size greater than dates in the office and obesity. She has had a normal anatomic survey previously. IMPRESSION The estimated weight is large for gestational age at the 91st percentile. There is appropriate interval growth since the last scan. The amniotic fluid is normal by both ROSALEE and MVP criteria. us Nichole Darby MD IMG OB US PROCEDURES Fin al Result documented in this encounter Visit Diagnoses Diagnosis Second trimester (HCC)- Primary state, incidental Second trimester (HCC) state, incidental 29 weeks gestation of (HCC) Obesity complicating , third trimester (HCC) Maternal care for excessive growth, third trimester, not applicable or unspecified (HCC) documented in this encounter Care Teams Electrician [employer] Relationship Specialty Start Date End Date [facility] [address] [place] [id number] PCP - General Family Medicine 04/16/23 documented as of this encounter
--- OUTSIDE RECORDS SUMMARY | 2025-04-14 16:50 | XMS_ITS | Encounter Summary ---
Author Organization [employer] Address [address] [place] [address] [address] [place] [address] Care Team Providers Care Production Team Member Name Role Phone Kandice Mc CARE TRANSITIONS NURSE Primary Care Provider Inactive/Transferred Primary Care Provider Stella White CNP Primary Care Provider [phone] Encounter Details Date Type Department Care Team (Late st Contact Info) Description 01/05/2024 Orders Only [facility] Case Management [address] [place] [phone] Augusto Stone CHW Social History Tobacco Use Types Packs/Day Years Used Date Smoking Tobacco: Never Assessed Comments Unknown Sex and Gender Information Value Date Recorded Sex Assigned at Female 03/02/2024 11:33 AM EDT Legal Sex Female 6:52 PM EDT Gender Identity Female 03/02/2024 11:33 AM EDT Sexual Orientation Straight 03/02/2024 11 :34 AM EDT documented as of this encounter Plan of Treatment Upcoming Encounters Date Type Department Care Team (Late st Contact Info) Description 05/13/2025 9:00 AM EST Procedure Visit [facility] [address] [place], [place] [phone] Stella Bynum CNP [address] [place], [place] [phone] documented as of this encounter Procedures Procedure Name Priority Date/Time Associated Diagnosis Comments HM PAP/HPV Routine 09/19/2018 12:00 AM EDT documented in this encounter Results * HM PAP/HPV (09/19/2018 12:00 AM EDT) us Historical Provider HEALTH MAINTENANCE Final Result documented in this encounter Visit Diagnoses Not on filedocumented in this encounter Care Teams Production Team Member Relationship Specialty Start Date End Date Kandice Mc FNP PCP - General Family Medicine 11/06/23 03/01/24 Inactive/Transferred PCP - General 03/02/24 12/03/24 Stella Bynum CNP [address] [place] [address] PCP - General Family Medicine 04/09/25 documented as of this encounter
--- OUTSIDE RECORDS SUMMARY | 2025-04-14 16:50 | XMS_ITS | Encounter Summary ---
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 * US OB MFM (06/25/2022 1:00 PM EST) Anatomical Region Laterality Modality Body, Pelvis N/A Ultrasound 06/25/2022 11:1 5 AM EST Impressions 06/25/2022 12:13 PM EST APPROACH: Transabdominal. This patient is referred for a targeted exam because of maternal weight. No aneuploidy screening is available to review. There is a single intrauterine with biometry consistent with her established gestational age. There are no major malformations or soft markers of aneuploidy. The placenta is posterior and there is no previa. The single deepest pocket is normal. I discussed the results of today's exam with the patient. Narrative 06/25/2022 12:13 PM EST OBSTETRICS REPORT (Signed Final 06/25/2022 12:13 pm) PATIENT INFO: ID #: [id number] : [birth year] (31 yrs)(F) Name: JUAN INMAN Visit Date: 06/25/2022 11:15 am SHERMAN PERFORMED BY: Attending: Rupert New MD Performed By: Christie Florian RN, RDMS Referred By: NICHOLE DARBY Location: [facility] Diagnosis and O SERVICE(S) PROVIDED: Targeted exam [id number] INDICATIONS: 19 weeks gestation of Z3A.19 Screening for malformations Z36.3 Obesity in , 2nd tri O99.212 GESTATIONAL AGE: LMP: 21w 4d Date: 01/25/22 BRENNEN: 11/01/22 U/S Today: 20w 0d BRENNEN: 11/12/22 Best: 19w 4d Det. By: U/Keke Beach BRENNEN: 11/15/22 (04/09/22) EVALUATION: Num Of Fetuses: 1 Heart Rate(bpm): 149 Cardiac Activity: Seen Presentation: Cephalic Placenta: Posterior No Previa P. Cord Insertion: Normal Amniotic Fluid ROSALEE FV: Normal Largest Pocket(cm) 4.6 BIOMETRY: BPD: 44.7 mm G.Age: 19w 4d 41 % OFD: 54.3 mm HC: 160.3 mm G.Age: 18w 6d 19 % AC: 160 mm G.Age: 21w 1d 96 % FL: 32.4 mm G.Age: 20w 1d 82 % HUM: 31.9 mm G.Age: 20w 5d 81 % NB: 5.47 mm 16 % > 1 MoM LV: 7.4 mm CI: 82.3 % 70 - 86 FL/HC: 20.2 % 16.8 - 19.8 HC/AC: 1.00 1.09 - 1.39 FL/BPD: 72.5 % FL/AC: 20.3 % 20 - 24 Est. FW: 353 gm 0 lb 12 oz 90 % TARGETED ANATOMY: Central Nervous System Calvarium/Cranial V.: Normal Cavum: Normal Lateral Ventricles: Normal Choroid Plexus: Normal Cereb./Vermis: Normal Cisterna Magna: Normal Midline Falx: Normal Spine Cervical: Normal Thoracic: Normal Lumbar: Normal Sacral: Normal Shape/Curvature: Normal Head/Neck Face: Normal Lips: Normal Neck: Normal Nuchal Fold: Normal Nasal Bone: Normal Profile: Normal Orbits/Eyes: Normal Mandible: Normal Maxilla: Normal Thorax 4 Chamber View: Normal Cardiac Activity: Observed Cardiac Situs: Normal Rt Outflow Tract: Normal Lt Outflow Tract: Normal Aortic Arch: Normal Ductal Arch: Normal SVC: Normal Diaphragm: Normal 3 Vessel View: Normal 3 V Trachea View: Normal IVC: Normal Abdomen Ventral Wall: Normal Situs: Normal Stomach: Normal Liver: Normal Lt Kidney: Normal Rt Kidney: Normal Bladder: Normal Bowel: Normal Extremities Lt Humerus: Normal Rt Humerus: Normal Lt Forearm: Normal Rt Forearm: Normal Lt Hand: Normal Rt Hand: Normal Lt Femur: Normal Rt Femur: Normal Lt Lower Leg: Normal Rt Lower Leg: Normal Lt Foot: Normal Rt Foot: Normal Other Umbilical Cord: Normal 3-vessel Genitalia: Normal (Female) CERVIX UTERUS ADNEXA: Cervix Length: 5.61 cm. Right Ovary Not visualized due to overlying bowel. Left Ovary Not visualized due to overlying bowel. Rupert New MD Electronically Signed Final Report 06/25/2022 12:13 pm Procedure Note Rupert New MD - 06/25/2022 OBSTETRICS REPORT (Signed Final 06/25/2022 12:13 pm) PATIENT INFO: ID #: [id number] : [birth year] (31 yrs)(F) Name: JUAN INMAN Visit Date: 06/25/2022 11:15 am SHERMAN PERFORMED BY: Attending: Rupert New MD Performed By: Christie Florian RN, RDMS Referred By: NICHOLE DARBY Location: [facility] Diagnosis and O SERVICE(S) PROVIDED: Targeted exam [id number] INDICATIONS: 19 weeks gestation of Z3A.19 Screening for malformations Z36.3 Obesity in , 2nd tri O99.212 GESTATIONAL AGE: LMP: 21w 4d Date: 01/25/22 BRENNEN: 11/01/22 U/S Today: 20w 0d BRENNEN: 11/12/22 Best: 19w 4d Det. By: U/S Sadia [place] BRENNEN: 11/15/22 (04/09/22) EVALUATION: Num Of Fetuses: 1 Heart Rate(bpm): 149 Cardiac Activity: Seen Presentation: Cephalic Placenta: Posterior No Previa P. Cord Insertion: Normal Amniotic Fluid ROSALEE FV: Normal Largest Pocket(cm) 4.6 BIOMETRY: BPD: 44.7 mm G.Age: 19w 4d 41 % OFD: 54.3 mm HC: 160.3 mm G.Age: 18w 6d 19 % AC: 160 mm G.Age: 21w 1d 96 % FL: 32.4 mm G.Age: 20w 1d 82 % HUM: 31.9 mm G.Age: 20w 5d 81 % NB: 5.47 mm 16 % > 1 MoM LV: 7.4 mm CI: 82.3 % 70 - 86 FL/HC: 20.2 % 16.8 - 19.8 HC/AC: 1.00 1.09 - 1.39 FL/BPD: 72.5 % FL/AC: 20.3 % 20 - 24 Est. FW: 353 gm 0 lb 12 oz 90 % TARGETED ANATOMY: Central Nervous System Calvarium/Cranial V.: Normal Cavum: Normal Lateral Ventricles: Normal Choroid Plexus: Normal Cereb./Vermis: Normal Cisterna Magna: Normal Midline Falx: Normal Spine Cervical: Normal Thoracic: Normal Lumbar: Normal Sacral: Normal Shape/Curvature: Normal Head/Neck Face: Normal Lips: Normal Neck: Normal Nuchal Fold: Normal Nasal Bone: Normal Profile: Normal Orbits/Eyes: Normal Mandible: Normal Maxilla: Normal Thorax 4 Chamber View: Normal Cardiac Activity: Observed Cardiac Situs: Normal Rt Outflow Tract: Normal Lt Outflow Tract: Normal Aortic Arch: Normal Ductal Arch: Normal SVC: Normal Diaphragm: Normal 3 Vessel View: Normal 3 V Trachea View: Normal IVC: Normal Abdomen Ventral Wall: Normal Situs: Normal Stomach: Normal Liver: Normal Lt Kidney: Normal Rt Kidney: Normal Bladder: Normal Bowel: Normal Extremities Lt Humerus: Normal Rt Humerus: Normal Lt Forearm: Normal Rt Forearm: Normal Lt Hand: Normal Rt Hand: Normal Lt Femur: Normal Rt Femur: Normal Lt Lower Leg: Normal Rt Lower Leg: Normal Lt Foot: Normal Rt Foot: Normal Other Umbilical Cord: Normal 3-vessel Genitalia: Normal (Female) CERVIX UTERUS ADNEXA: Cervix Length: 5.61 cm. Right Ovary Not visualized due to overlying bowel. Left Ovary Not visualized due to overlying bowel. Rupert New MD Electronically Signed Final Report 06/25/2022 12:13 pm IMPRESSION: APPROACH: Transabdominal. This patient is referred for a targeted exam because of maternal weight. No aneuploidy screening is available to review. There is a single intrauterine with biometry consistent with her established gestational age. There are no major malformations or soft markers of aneuploidy. The placenta is posterior and there is no previa. The single deepest pocket is normal. I discussed the results of today's exam with the patient. Nichole Darby MD IM OB US PROCEDURES Fin al Result documented in this encounter Visit Diagnoses Diagnosis Encounter for anatomic survey (HCC)- Primary Encounter for anatomic survey Encounter for anatomic survey (HCC) Encounter for anatomic survey 19 weeks gestation of (HCC) Encounter for screening for malformations (HCC) Obesity complicating , second trimester (HCC) documented in this encounter Care Teams Cloth Weigher Relationship Specialty Start Date End Date [facility] [place] [id number] PCP - General Family Medicine 04/16/23 documented as of this encounter
--- OUTSIDE RECORDS SUMMARY | 2025-04-14 16:50 | XMS_ITS | Clinical Summary ---
Author Organization [employer] Address [address] [facility] [address] [place] [address] Care Team Providers Care Logistics Project Manager Name Role Phone Fletcher Chandrakantranjeet MAJANO Primary Care Provider [phone] Allergies No known active allergies Medications etonogestrel-elut ing (Nexplanon) 68 mg contraceptive implant 1 each by Implant route 1 (one) time. 09/20/19 21 025 Discontinued Active Problems Problem Noted Date Diagnosed Date Obesity (BMI 30.0-34.9) 04/05/2025 Overview (04/05/2025): Last Addressed Date: 09/19/2021 Right leg DVT (CMS/HCC) 04/05/2025 Overview (04/05/2025): Last Addressed Date: 04/30/2022; Recent NextGen Note: 07/17, = provoked . FHx sister and MGM With DVT, unsure if either had genetic testing Will need anticoag at least 3 mos for provoked DVT -> as of 10/02/20, completing 3 mos coumadin, will d/c per heme ([facility]). Genetic testing thus far neg (FVL, AT3, Lupus anticoag), will have prot C and S testing 2 wks after stopping coumadin then f/u with heme to discuss result. -> all negative -> 12/14: no chronic anticoag needed. 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 Enlarged thyroid gland 09/12/2017 Pityriasis 09/12/2017 History of herpes simplex type 2 infection 03/06 Overview (04/05/2025): Last Addressed Date: 04/30/2022 Changing nevus 01/23/2017 Resolved Problems Problem Noted Date Diagnosed Date Resolved Date Neuroendocrine tumor 04/05/2025 025 Overview (04/05/2025): Last Addressed Date: 04/30/2022; Recent NextGen Note: appendix 10/2018 CT done 05/2019 = neg for recurrance or mets plan was for CT in 2 yrs - lost to f/u -> ordered 03/17 -> patient , will need to defer till , will d/w surgery 05/17 patient prefers to wait on imaging to - has d/w surgery and again w/ me re: risks/benefits Class 1 obesity 04/05/2025 04/09/2025 Encounter for elective induction of labor 11/15/2022 04/09/2025 (normal spontaneous vaginal delivery) 05/23/2020 04/09/2025 Obesity 08/16/2016 04/09/2025 Encounters Date Type Department Care Team Description 04/09/2025 10:45 AM EST Office Visit [facility] [address] [place] [address] Stella Bynum CNP Encounter to establish care (Primary Dx); History of malignant neoplasm of appendix; Other form of scoliosis of thoracic spine; Encounter for immunization; Dietary counseling; Exercise counseling; Class 2 obesity with body mass index (BMI) of 36.0 to 36.9 in adult, unspecified obesity type, unspecified whether serious comorbidity present; Encounter for screening examination for sexually transmitted disease 04/09/2025 Travel 04/05/2025 Telephone [facility] [address] [place] [address] Any-Geronimo S[place], [place] chart prep 02/22/2025 Telephone [facility] [address] [place], [place] [phone] Daniel Paiz MD 01/27/2025 Telephone [facility] [address] [place] [address] Daniel Paiz MD CHW - New Patient Assistance from Last 3 Months Immunizations Immunization Administration Dates Next Due Influenza Injectable Quadriv alant Preservative Free IIV4 MDCK 01/27/2020 Influenza injectable quadriv alent preservative free 04/30/2022 Influenza, seasonal, injecta ble, preservative free 04/09/2025,06/15/2016,03/02/2015,2013,02/24/2013,02/06/2012,03/09/2010 PPD Test 06/05/2016, 6,07/21/2014,2013 Tdap 08/20/2022, 0,03/31/2015,2011 Family History Medical History Relation Name Comments Diabetes Daughter Diabetes Maternal Grandmother Diabetes Mother Hypertension Mother Relation Name Status Comments Daughter Maternal Grandmother Mother Social History Tobacco Use [...] Orientation Straight 03/02/2024 11 :34 AM EDT Last Filed Vital Signs Vital Sign Reading [...] Mass Index 36.31 04/09/2025 10:31 AM EST Plan of Treatment Upcoming Encounters Date Type Department Care Team (Late st Contact Info) Description 05/13/2025 9:00 AM EST Procedure Visit [facility] [address] [place], [place] [phone] Stella Bynum, GRETEL [address], [place] [phone] Health Maintenance Due Date Last Done Comments HIV Screening 1989 HPV Vaccines (1 - 3-dose series) 2004 Hepatitis C Screening 08/08/2007 Hepatitis B Vaccines (1 of 3 - 19+ 3-dose series) 2008 Cervical Cancer Screening 09/19/2021 HPV/Cotest 09/19/2021 Pap Smear 09/19/2021 09/19/2018 COVID-19 Vaccine ( season) 2025 Alcohol/Substance Use Screening 04/09/2026 04/09/2025 Depression Screening 04/09/2026 04/09/2025, 04/09/20 Disability Screening 04/09/2026 04/09/2025 Family Planning (PISQ) 04/09/2026 04/09/2025 SDOH Screening 04/09/2026 04/09/2025 Tobacco Screening 04/09/2026 04/09/2025 Lipid Panel 04/14/2030 04/14/2025 DTaP/Tdap/Td Vaccines (5 - Td or Tdap) 08/20/2032 08/20/2022, 02/23/2020, 03/31/2015, Additional history exists Zoster Vaccines (1 of 2) 08/08/2039 RSV Patients and Patients Aged 60 years or older (1 - 1-dose 75+ series) 2064 Influenza Vaccine Completed 04/09/2025, , 01/27/2020, Additional history exists HIB Vaccines Aged Out No longer eligi ble based on patient's age to complete this topic Hepatitis A Vaccines Aged Out No long er eligible based on patient's age to complete this topic IPV Vaccines Aged Out No longer eligi ble based on patient's age to complete this topic Meningococcal B Vaccine Aged Out No l onger eligible based on patient's age to complete this topic Meningococcal Vaccine Aged Out No liliya corinne eligible based on patient's age to complete this topic Pneumococcal Vaccine: Pediatrics (0 to 5 Years) and At-Risk Patients (6 to 49) Years Aged Out No longer eligible based on patient's age to complete this topic RSV under 20 months Aged Out No longe r eligible based on patient's age to complete this topic Rotavirus Vaccines Aged Out No longer eligible based on patient's age to complete this topic Procedures Procedure Name Priority Date/Time Associated Diagnosis Comments HEMOGLOBIN A1C Routine 04/14/2025 9:02 AM EST Encounter to establish care LIPID PANEL, STANDARD Routine 04/14/2025 9:02 AM EST Encounter to establish care COMPREHENSIVE METABOLIC PANEL Routine 04/14/2025 9:02 AM EST Encounter to establish care CBC WITH AUTO DIFFERENTIAL Routine 04/14/2025 9:02 AM EST Encounter to establish care HM PAP/HPV Routine 09/19/2018 12:00 AM EDT from Last 3 Months or Most Recently Relevant to Health Maintenance Results * CBC auto differential (04/14/2025 9:02 AM EST) White Blood Count 6.4 4.8 - 10.8 X10*3/uL [facility] Red Blood Count 4.44 4.20 - 5.50 X10*6/uL [facility] Hemoglobin 12.3 12.0 - 16.0 g/dl [facility] Hematocrit 38.1 37.0 - 47.0 % [facility] Mean Corpuscular Volume 85.8 80.0 - 98.0 fL [facility] Mean Corpuscular Hemoglobin 27.7 27.0 - 33.0 pg [facility] Mean Corpuscular HGB Conc 32.3 31.0 - 35.0 g/dl [facility] Red Cell Distribution Width 13.8 11.0 - 16.0 % [facility] Platelet Count 232 160 - 400 X10*3/uL [facility] Mean Platelet Volume 11.6 9.4 - 12.3 fL [facility] Neutrophils Percent Auto 48.9 45 - 73 % [facility] Imm Gran Pct Auto 0.3 0.0 - 0.4 % [facility] Lymphocytes Percent Auto 40.0 20 - 40 % [facility] Monocytes Percent Auto 7.8 2 - 11 % [facility] Eosinophils Percent Auto 2.5 0 - 4 % [facility] Basophils Percent Auto 0.5 0 - 2 % [facility] NRBC Pct Auto 0.0 0.0 - 0.2 /100WBC [facility] Neutrophils Absolute Auto 3.1 2.0 - 8.3 x10*3/uL [facility] Imm Gran Abs Auto 0.02 0.00 - 0.03 X10*3/uL [facility] Lymphocytes Absolute Auto 2.6 1.2 - 4.9 X10*3/uL [facility] Monocytes Absolute Auto 0.5 0.1 - 1.2 X10*3/uL [facility] Eosinophils Absolute Auto 0.2 0.0 - 0.4 X10*3/uL [facility] Basophils Absolute Auto 0.0 0.0 - 0.2 X10*3/uL [facility] NRBC Abs Auto 0.000 0.0 - 0.012 X10*3/uL [facility] Blood Venous blood specimen / Unknown 04/14/2025 9:02 AM EST 04/14/2025 2:06 PM EST [facility] BLOOD ORDERABLES Chio stanton Result [facility] [address] [place] [phone] * Hemoglobin A1c (04/14/2025 9:02 AM EST) Hemoglobin A1c 5.5 <6.0 % [facility] Comment:Hemoglobin A1C Refer ence Range Adults: 4.8 - 6.0 % Non diabetic: < 6.0 % Goal: < 7.0 %Additional Action Suggested: > 8.0 %Note: Hemoglobin A1c results are invalid for patients with abnormal amounts of HbF. Blood transfusions may impact the HbA1c concentration in the patient sample. Estimated Average Glucose 111 mg/dL [facility] Comment:eAG = Estimated ave rage glucose which is %A1C expressed asaverage glucose, using the formula of the M3C-KuddstgRwtkgnv Glucose study (ADAG), Diabetes Care, Vol.31,#8,Dec. 2007 Blood Venous blood specimen / Unknown 04/14/2025 9:02 AM EST 04/14/2025 2:06 PM EST [facility] BLOOD ORDERABLES Chio l Result Performing Organization Address City/[facility]/ZIP Co de Phone Number [facility] [address] [place] [phone] * (ABNORMAL) Lipid Panel, Standard (04/14/2025 9:02 AM EST) Triglycerides 153(H) <150 mg/dL [facility] Comment:Desirable Triglyceri de: less than 150 mg/dLBorderline High Triglyceride 150-199 mg/dLHigh Triglyceride: 200-499 mg/dLVery High Triglyceride: greater than or equal to 5OO mg/dL Cholesterol 194 <200 mg/dL [facility] Comment:Desirable Cholestero l: less than 200 mg/dLBorderline High Cholesterol: 200-239 mg/dLHigh Cholesterol: greater than 239 mg/dL LDL Cholesterol Calculated 129(H) <100 mg/dL [facility] Comment:Desirable LDL: less than 100 mg/dLNear Optimal/Above Optimal LDL: 110- 129 mg/dLBorderline High LDL: 130-159 mg/dLHigh LDL: 160-189 mg/dLVery High LDL: greater than or equal to 190 mg/dL HDL Cholesterol 35(L) >40 mg/dL [facility] Comment:Desirable HDL: great er than 40 mg/dL Note: This HDL assay may give artificially low results in patients with liver disease. Blood Venous blood specimen / Unknown 04/14/2025 9:02 AM EST 04/14/2025 2:06 PM EST [facility] BLOOD ORDERABLES Chio l Result Performing Organization Address City/[facility]/ZIP Co de Phone Number [facility] [address] [place] [address] [phone] * (ABNORMAL) Comprehensive Metabolic Panel (04/14/2025 9:02 AM EST) Sodium 139 135 - 145 mmol/L [facility] Potassium 4.3 3.3 - 5.1 mmol/L [facility] Chloride 107 96 - 108 mmol/L [facility] Carbon Dioxide 26 22 - 29 mmol/L [facility] Anion Gap 10(L) 12 - 20 [facility] Urea Nitrogen (BUN) 9 9 - 16 mg/dL [facility] Creatinine, Serum 0.63 0.5 - 1.4 mg/dL [facility] Estimated Glomerular Filt Rate >60 [facility] Comment:Chronic Kidney Disea se: Estimated GFR < 60 mL/min/1.06g6Nfuphd Kidney Disease: Estimated GFR < 15 mL/min/1.73m2 Glucose 88 60 - 115 mg/dL [facility] Calcium 9.3 8.4 - 10.2 mg/dL [facility] Bilirubin, Total 0.3 0.0 - 1.0 mg/dL [facility] Aspartate Amino Transferase 32(H) 5 - 31 U/L [facility] Alanine Aminotransferase 28 0 - 31 U/L [facility] Total Protein 7.4 6.5 - 8.0 g/dL [facility] Albumin Level 4.3 3.5 - 5.0 g/dL [facility] Alkaline Phosphatase 61 39 - 117 U/L [facility] Blood Venous blood specimen / Unknown 04/14/2025 9:02 AM EST 04/14/2025 2:06 PM EST [facility] BLOOD ORDERABLES Chio l Result [facility] [address] [place] [phone] * HM PAP/HPV (09/19/2018 12:00 AM EDT) Historical Provider HEALTH MAINTENANCE Final Result from Last 3 Months or Most Recently Relevant to Health Maintenance [place] [address] [place] [address] C3 Care Teams Logistics Project Manager Relationship Specialty Start Date End Date Stella Bynum CNP [address] [place] [address] PCP - General Family Medicine 04/09/25
--- OUTSIDE RECORDS SUMMARY | 2025-04-14 16:50 | XMS_ITS | Encounter Summary ---
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 * US OB MFM (11/01/2022 10:58 AM EDT) Anatomical Region Laterality Modality Body, Pelvis N/A Ultrasound 11/01/2022 10:5 2 AM EDT Impressions 11/01/2022 11:04 AM EDT The patient was referred for evaluation of testing and growth secondary to above indications. IMPRESSION: Transabdominal ultrasound performed. Fetus measuring large for dates with EFW greater than 90th percentile. Normal testing. Normal amniotic fluid volume. She is being followed for size greater than dates and on today's ultrasound there has been adequate interval growth and the fetus continues to measure greater than the 90th percentile. The testing is within normal limits with a BPP of 8/8 and normal amniotic fluid volume. Macrosomia is not present on today's scan. No further follow-up is suggested though further scans may be arranged as clinically indicated. Thank you for involving us in the care of your patient. Please do not hesitate to contact us with any questions or concerns. Narrative 11/01/2022 11:04 AM EDT OBSTETRICS REPORT (Signed Final 11/01/2022 11:04 am) PATIENT INFO: ID #: [id number] : [birth year] (32 yrs)(F) Name: JUAN INMAN Visit Date: 11/01/2022 10:52 am PERFORMED BY: Attending: Dimas Ricardo MD Performed By: Franca Schafer RDMS Referred By: NICHOLE DARBY Location: [facility] Diagnosis and O SERVICE(S) PROVIDED: BPP withOUT NST 01488 Follow-up exam 05354 INDICATIONS: 38 weeks gestation of Z3A.38 Uterine size-date discrepancy, third tri O26.843 Obesity in , 3rd tri O99.213 Size GREATER THAN dates, 3rd tri O36.63X0 GESTATIONAL AGE: LMP: 40w 0d Date: 01/25/22 BRENNEN: 11/01/22 U/S Today: 38w 4d BRENNEN: 11/11/22 Best: 38w 0d Det. By: U/S [place] BRENNEN: 11/15/22 (04/09/22) EVALUATION: Num Of Fetuses: 1 Heart Rate(bpm): 147 Cardiac Activity: Seen Presentation: Breech Placenta: Fundal Amniotic Fluid ROSALEE FV: Normal ROSALEE Sum(cm) %Tile Largest Pocket(cm) 16.32 63 4.57 RUQ(cm) RLQ(cm) LUQ(cm) LLQ(cm) 3.36 4.46 4.57 3.93 BIOPHYSICAL EVALUATION: Amniotic F.V: Normal F. Tone: Present F. Movement: Present Score: 8/8 F. Breathing: Present BIOMETRY: BPD: 89.2 mm G.Age: 36w 1d 21 % HC: 333 mm G.Age: 38w 0d 54 % AC: 357.9 mm G.Age: 39w 5d 83 % FL: 79 mm G.Age: 40w 3d > 97.5 % HUM: 67.1 mm G.Age: 39w 0d > 95 % CI: 72.58 % 70 - 86 FL/HC: 23.7 % 20.9 - 22.7 HC/AC: 0.93 0.92 - 1.05 FL/BPD: 88.6 % 71 - 87 FL/AC: 22.1 % 20 - 24 Est. FW: 3700 gm 8 lb 3 oz 92 % ANATOMY: Heart: Normal RVOT: Normal LVOT: Normal Aortic Arch: Normal Diaphragm: Normal Stomach: Normal Cord Vessels: Normal 3-Vessel Cord Kidneys: Normal Bladder: Normal Spine: Normal CERVIX UTERUS ADNEXA: Cervix Long and closed transabdominally. Uterus Within Normal Limits Right Ovary Not visualized due to overlying bowel. Left Ovary Not visualized due to overlying bowel. Dimas Ricardo MD Electronically Signed Final Report 11/01/2022 11:04 am Procedure Dimas Koroma MD - 11/01/2022 OBSTETRICS REPORT (Signed Final 11/01/2022 11:04 am) PATIENT INFO: ID #: [id number] : [birth year] (32 yrs)(F) Name: JUAN INMAN Visit Date: 11/01/2022 10:52 am PERFORMED BY: Attending: Dimas Ricardo MD Performed By: Franca Schafer RDMS Referred By: NICHOLE DARBY Location: [facility] Diagnosis and O SERVICE(S) PROVIDED: BP withOUT NST 51069 Follow-up exam 50075 INDICATIONS: 38 weeks gestation of Z3A.38 Uterine size-date discrepancy, third tri O26.843 Obesity in , 3rd tri O99.213 Size GREATER THAN dates, 3rd tri O36.63X0 GESTATIONAL AGE: LMP: 40w 0d Date: 01/25/22 BRENNEN: 11/01/22 U/S Today: 38w 4d BRENNEN: 11/11/22 Best: 38w 0d Det. By: U/S [place] BRENNEN: 11/15/22 (04/09/22) EVALUATION: Num Of Fetuses: 1 Heart Rate(bpm): 147 Cardiac Activity: Seen Presentation: Breech Placenta: Fundal Amniotic Fluid ROSALEE FV: Normal ROSALEE Sum(cm) %Tile Largest Pocket(cm) 16.32 63 4.57 RUQ(cm) RLQ(cm) LUQ(cm) LLQ(cm) 3.36 4.46 4.57 3.93 BIOPHYSICAL EVALUATION: Amniotic F.V: Normal F. Tone: Present F. Movement: Present Score: 01/01 F. Breathing: Present BIOMETRY: BPD: 89.2 mm G.Age: 36w 1d 21 % HC: 333 mm G.Age: 38w 0d 54 % AC: 357.9 mm G.Age: 39w 5d 83 % FL: 79 mm G.Age: 40w 3d > 97.5 % HUM: 67.1 mm G.Age: 39w 0d > 95 % CI: 72.58 % 70 - 86 FL/HC: 23.7 % 20.9 - 22.7 HC/AC: 0.93 0.92 - 1.05 FL/BPD: 88.6 % 71 - 87 FL/AC: 22.1 % 20 - 24 Est. FW: 3700 gm 8 lb 3 oz 92 % ANATOMY: Heart: Normal RVOT: Normal LVOT: Normal Aortic Arch: Normal Diaphragm: Normal Stomach: Normal Cord Vessels: Normal 3-Vessel Cord Kidneys: Normal Bladder: Normal Spine: Normal CERVIX UTERUS ADNEXA: Cervix Long and closed transabdominally. Uterus Within Normal Limits Right Ovary Not visualized due to overlying bowel. Left Ovary Not visualized due to overlying bowel. Dimas Ricardo MD Electronically Signed Final Report 11/01/2022 11:04 am IMPRESSION: The patient was referred for evaluation of testing and growth secondary to above indications. IMPRESSION: Transabdominal ultrasound performed. Fetus measuring large for dates with EFW greater than 90th percentile. Normal testing. Normal amniotic fluid volume. She is being followed for size greater than dates and on today's ultrasound there has been adequate interval growth and the fetus continues to measure greater than the 90th percentile. The testing is within normal limits with a BPP of 8/8 and normal amniotic fluid volume. Macrosomia is not present on today's scan. No further follow-up is suggested though further scans may be arranged as clinically indicated. Thank you for involving us in the care of your patient. Please do not hesitate to contact us with any questions or concerns. us Nichole Darby MD IMG OB US PROCEDURES Fin al Result documented in this encounter Visit Diagnoses Diagnosis Uterine size date discrepancy , third trimester (HCC)- Primary Uterine size date discrepancy , third trimester ([facility]) 38 weeks gestation of (HCC) Obesity complicating , third trimester ([facility]) Maternal care for excessive growth, third trimester, not applicable or unspecified (HCC) documented in this encounter Care Teams Switchboard Wire Worker Helper Relationship Specialty Start Date End Date [facility] [address] [place] [phone] PCP - General Family Medicine 04/16/23 documented as of this encounter
[2025-04-15 08:54] LABS: HBS Num1 6.47 mIU/mL (0-7.99); HBc Num1 0.19 S/CO (0.00-0.79); HBsAGNum1 0.36 S/CO (0.00-0.99); HIV Num 1 0.06 S/CO (0.00-0.99); Hepatitis B Surface Antigen Negative (Negative); ~HepC Num1 0.15 S/CO (0.00-0.79); ~Hepatitis B Surface Antibody NONREACTIVE (Nonreactive); ~Hepatitis C Antibody Nonreactive (Nonreactive)
== END 2025-04-14 08:59 | disposition home or self-care (01) ==
LOC: HO.CHCLDS 08:58
DX: Z11.3 Encounter for screening for infections with a predominantly sexual mode of transmission (principal); Z11.4 Encounter for screening for human immunodeficiency virus [HIV]; Z11.59 Encounter for screening for other viral diseases; Z76.89 Persons encountering health services in other specified circumstances
CPT/HCPCS: 36415; 80053; 80061; 83036; 85025; 86592; 86704; 86706; 86803; 87340; 87389

== ENCOUNTER 2025-05-14 09:18 | Outpatient (REF) | payer MEDICAID, SELFPAY ==
--- OUTSIDE RECORDS SUMMARY | 2025-05-13 09:00 | XMS_ITS | Encounter Summary ---
Author Organization [employer] Address [address] [facility] 7 [place] [address] Care Team Providers Care Housing Coordinator Name Role Phone Stella Bynum CNP Primary Care Provider [phone] Reason for Visit * Reason Comments Gynecologic Exam Encounter Details Date Type Department Care Team (Latest Contact Info) Description 05/13/2025 9:00 AM EST Procedure Visit [facility] [address] [place], [place] [phone] Stella Bynum CNP [address] [place] [address] Encounter for screening for cervical cancer (Primary Dx) Social History Tobacco Use Types [...] Sign Reading Time Taken Comments Blood Pressure 122/78 05/13/2025 9:11 AM EST Pulse 80 05/13/2025 9:11 AM EST Temperature 36.7 C (98.1 F) 05/13/2025 9:11 AM EST Respiratory Rate 14 05/13/2025 9:11 AM EST Oxygen Saturation 98% 05/13/2025 9:11 AM EST Inhaled Oxygen Concentration - - Weight 95.3 kg (210 lb) 05/13/2025 9:11 AM EST Height 160 cm (5' 3 ) 05/13/2025 9:11 AM EST Body Mass Index 37.2 05/13/2025 9:11 AM EST documented in this encounter Progress Notes * Stella Bynum CNP - 05/13/2025 9:00 AM EST Subjective Patient ID: Ester Butt is a 34 y.o. female who presents for Gynecologic Exam. HPI Pt LMP 05/12/25 Denies vaginal, urinary or breast concerns. She does perform SBE but also opted in for breast exam today. Has monogamous AMAB partner, partner has vasectomy. Last pap 08/2018 NILM Review of Systems Genitourinary: Positive for vaginal bleeding. Negative for difficulty urinating, dyspareunia, dysuria, enuresis, flank pain, frequency, hematuria, menstrual problem, pelvic pain, urgency, vaginal discharge and vaginal pain. +vaginal bleeding consistent with menses. Objective Vitals: 12/18/25 0911 BP: 122/78 Pulse: 80 Resp: 14 Temp: 98.1 ??F (36.7 ??C) SpO2: 98% Physical Exam Constitutional: Appearance: Normal appearance. HENT: Head: Normocephalic and atraumatic. Chest: Breasts: Right: Normal. No swelling, bleeding, inverted nipple, mass, nipple discharge, skin change or tenderness. Left: Normal. No swelling, bleeding, inverted nipple, mass, nipple discharge, skin change or tenderness. Genitourinary: General: Normal vulva. Labia: Right: No rash, tenderness, lesion or injury. Left: No rash, tenderness, lesion or injury. Urethra: No prolapse, urethral pain, urethral swelling or urethral lesion. Vagina: Normal. Cervix: Normal. No cervical motion tenderness, discharge, friability, lesion, erythema, cervical bleeding or eversion. Uterus: Normal. Not deviated, not enlarged, not fixed, not tender and no uterine prolapse. Adnexa: Right adnexa normal and left adnexa normal. Right: No mass, tenderness or fullness. Left: No mass, tenderness or fullness. Rectum: Normal. Comments: +minor bleeding consistent with menses. Lymphadenopathy: Upper Body: Right upper body: No supraclavicular, axillary or pectoral adenopathy. Left upper body: No supraclavicular, axillary or pectoral adenopathy. Neurological: General: No focal deficit present. Mental Status: She is alert and oriented to person, place, and time. Psychiatric: Mood and Affect: Mood normal. Behavior: Behavior normal. Assessment/Plan Problem List Items Addressed This Visit None Visit Diagnoses Encounter for screening for cervical cancer - Primary Relevant Orders Pap Smear No history of abnormal paps. Repeat pap in 5 yrs if normal result. Anticipatory guidance provided for routine cancer screening. All questions and concerns addressed. Rtc as needed for routine care. documented in this encounter Plan of Treatment Scheduled Orders Name Type Priority Associated Diagnoses Orde r Schedule Pap Smear Pathology and Cytology Routine Encounter for screening for cervical cancer Ordered: 05/13/2025 documented as of this encounter Visit Diagnoses Diagnosis Encounter for screening for cervical cancer- Primary documented in this encounter Additional Health Concerns Assessment Noted Time PHQ-9 Depression Total Score: 1 04/09/20 11:13 AM EST documented as of this encounter Care Teams Housing Coordinator Relationship Specialty Start Date End Date Stella Bynum CNP [address] [facility] [place] [address] PCP - General Family Medicine 04/09/25 documented as of this encounter
--- OUTSIDE RECORDS SUMMARY | 2025-05-18 12:29 | XMS_ITS | Encounter Summary ---
Author Organization [facility] Address [address] [place] [address] Care Team Providers Care Car Designer Name Role Phone [facility] Primary Care Provider Encounter Details Date Type Department Care Team (Late st Contact Info) Description 05/31/2022 Community Orders [facility] EpicCare Link [address] [place] [address] Nichole Darby MD [address] [place] [address] Encounter for anatomic survey (Primary Dx) Social [...] Industry Job Start Date Job End Date [employer] Not on file Not on file Not on file documented as of this encounter Plan of Treatment Not on file documented as of this encounter Results * Due to [place] state law, this organization might not be [...] 06/25/2022 12:13 pm) PATIENT INFO: ID #: [id number] : [birth year] (31 yrs)(F) Name: JUAN INMAN Visit Date: 06/25/2022 11:15 am SHERMAN PERFORMED BY: Attending: Rupert New MD Performed By: Chrsitie Florian RN, RDMS Referred By: NICHOLE DARBY Location: [facility] Diagnosis and O SERVICE(S) PROVIDED: Targeted exam 37094 INDICATIONS: 19 weeks gestation of Z3A.19 Screening [...] 06/25/2022 12:13 pm) PATIENT INFO: ID #: [id number] : [birth year] (31 yrs)(F) Name: JUAN INMAN Visit Date: 06/25/2022 11:15 am SHERMAN PERFORMED BY: Attending: Rupert New MD Performed By: Christie Florian RN, RDMS Referred By: NICHOLE DARBY Location: [facility] Diagnosis and O SERVICE(S) PROVIDED: Targeted exam 80289 INDICATIONS: 19 weeks gestation of Z3A.19 Screening [...] (HCC) documented in this encounter Care Teams Car Designer Relationship Specialty Start Date End Date [facility] [address] [place] [phone] PCP - General Family Medicine 04/16/23 documented as of this encounter
--- OUTSIDE RECORDS SUMMARY | 2025-05-18 12:29 | XMS_ITS | Clinical Summary ---
Author Organization [employer] Address [address] [facility] [address] [place] [address] Care Team Providers Care Cook Barbecue Name Role Phone Fletcher Chandrakantbullfrancisco GRETEL Primary Care Provider [phone] Allergies No known active allergies Medications No known medications Active Problems Problem Noted Date Diagnosed Date [...] 3 mos coumadin, will d/c per heme ([facility]). Genetic testing thus far neg (FVL, AT3, [...] Encounters Date Type Department Care Team Description 05/13/2025 9:00 AM EST Procedure Visit [facility] [address] [place] [address] Stella Bynum CNP Encounter for screening for cervical cancer (Primary Dx) 05/13/2025 Travel 05/12/2025 Telephone [facility] [address] [place] [address] Stella Bynum CNP chart prep 04/20/2025 Results Follow-Up [facility] [address] [place] [address] Stella Bynum CNP HIV-1/2 Antigen and Antibodies, Fourth Generation, with Reflexes, Hepatitis C Antibody with Reflex to HCV, RNA, Quantitative, Real-Time PCR, CBC auto differential, Additional followed-up results: 8 04/09/2025 10:45 AM EST Office Visit [facility] [address] [place] [address] Stella Bynum CNP Encounter to establish care (Primary Dx); History of malignant neoplasm of appendix; Other form of scoliosis of thoracic spine; Encounter for immunization; Dietary counseling; Exercise counseling; Class 2 obesity with body mass index (BMI) of 36.0 to 36.9 in adult, unspecified obesity type, unspecified whether serious comorbidity present; Encounter for screening examination for sexually transmitted disease 04/09/2025 Travel 04/05/2025 Telephone [facility] [address] [place] [address] Sosa Mehta MA chart prep 02/22/2025 Telephone [facility] [address] [place] [address] Daniel Paiz MD from Last 3 Months Immunizations Immunization Administration [...] Mass Index 37.2 05/13/2025 9:11 AM EST Plan of Treatment Health Maintenance Due Date Last Done Comments HPV Vaccines (1 - 3-dose series) 2004 Hepatitis B Vaccines (1 of 3 - [...] Completed 04/09/2025, , 01/27/2020, Additional history exists HIV Screening Completed 04/14/2025 Hepatitis C Screening Completed 04/14/2025 HIB Vaccines Aged Out No longer eligi [...] Procedure Name Priority Date/Time Associated Diagnosis Comments CT ABDOMEN PELVIS W CONTRAST Routine 04/16/2025 History of malignant neoplasm of appendix HEPATITIS B SURFACE ANTIGEN, EIA Routine 04/14/2025 9:02 AM EST Encounter for screening examination for sexually transmitted disease HEPATITIS B CORE AB TOTAL Routine 04/14/2025 9:02 AM EST Encounter for screening examination for sexually transmitted disease HEPATITIS B SURFACE ANTIBODY, QUALITATIVE Routine 04/14/2025 9:02 AM EST Encounter for screening examination for sexually transmitted disease RPR (MONITOR) W/REFL TITER Routine 04/14/2025 9:02 AM EST Encounter for screening examination for sexually transmitted disease HEMOGLOBIN A1C Routine 04/14/2025 9:02 AM EST Encounter to establish care LIPID PANEL, STANDARD Routine 04/14/2025 9:02 AM EST Encounter to establish care COMPREHENSIVE METABOLIC PANEL Routine 04/14/2025 9:02 AM EST Encounter to establish care CBC WITH AUTO DIFFERENTIAL Routine 04/14/2025 9:02 AM EST Encounter to establish care HEPATITIS C AB W/REFL TO HCV RNA, QN, PCR Routine 04/14/2025 9:02 AM EST Encounter to establish care HIV 1/2 ANTIGEN/ANTIBODY, FOURTH GENERATION W/RFL Routine 04/14/2025 9:02 AM EST Encounter to establish care HM PAP/HPV Routine 09/19/2018 12:00 AM EDT from Last 3 Months or Most Recently Relevant to Health Maintenance Results * CT Abdomen Pelvis w/ Contrast (04/16/2025) Anatomical Region Laterality Modality Body, Pelvis, Abdomen Computed T omography [facility] CT PROCEDURES Edited Result - Final * CBC auto differential (04/14/2025 9:02 AM EST) White Blood Count 6.4 4.8 - 10.8 X10*3/uL [facility] Red Blood Count 4.44 4.20 - 5.50 X10*6/uL [facility] Hemoglobin 12.3 12.0 - 16.0 g/dl [facility] Hematocrit 38.1 37.0 - 47.0 % [facility] Mean Corpuscular Volume 85.8 80.0 - 98.0 fL [facility] Mean Corpuscular Hemoglobin 27.7 27.0 - 33.0 pg [facility] Mean Corpuscular HGB Conc 32.3 31.0 - 35.0 g/dl [facility] Red Cell Distribution Width 13.8 11.0 - 16.0 % [facility] Platelet Count 232 160 - 400 X10*3/uL [facility] Mean Platelet Volume 11.6 9.4 - 12.3 fL [facility] Neutrophils Percent Auto 48.9 45 - 73 % [facility] Imm Gran Pct Auto 0.3 0.0 - 0.4 % [facility] Lymphocytes Percent Auto 40.0 20 - 40 % [facility] Monocytes Percent Auto 7.8 2 - 11 % [facility] Eosinophils Percent Auto 2.5 0 - 4 % [facility] Basophils Percent Auto 0.5 0 - 2 % [facility] NRBC Pct Auto 0.0 0.0 - 0.2 /100WBC [facility] Neutrophils Absolute Auto 3.1 2.0 - 8.3 x10*3/uL [facility] Imm Gran Abs Auto 0.02 0.00 - 0.03 X10*3/uL [facility] Lymphocytes Absolute Auto 2.6 1.2 - 4.9 X10*3/uL [facility] Monocytes Absolute Auto 0.5 0.1 - 1.2 X10*3/uL [facility] Eosinophils Absolute Auto 0.2 0.0 - 0.4 X10*3/uL [facility] Basophils Absolute Auto 0.0 0.0 - 0.2 X10*3/uL [facility] NRBC Abs Auto 0.000 0.0 - 0.012 X10*3/uL [facility] Blood Venous blood specimen / Unknown 04/14/2025 9:02 AM EST 04/14/2025 2:06 PM EST [facility] LAB BLOOD ORDERABLES Chio l Result Performing Organization Address [facility] Co de Phone Number [facility] [address] [place] [phone] * Hepatitis C Antibody with Reflex to HCV, RNA, Quantitative, Real-Time PCR (04/14/2025 9:02 AM EST) Hepatitis C Antibody Nonreactive Nonreactive [facility] Comment:Antibodies to HCV no t detected; does not exclude early acuteHCV infection. Blood Venous blood specimen / Unknown 04/14/2025 9:02 AM EST 04/14/2025 2:06 PM EST [facility] LAB BLOOD ORDERABLES Chio l Result Performing Organization Address [facility] Co de Phone Number [facility] [address] [place] [phone] * Hepatitis B surface antigen, EIA (04/14/2025 9:02 AM EST) Pathologist [facility] Hepatitis B Surface Ag Negative Negative [facility] Blood Venous blood specimen / Unknown 04/14/2025 9:02 AM EST 04/14/2025 2:06 PM EST [facility] LAB BLOOD ORDERABLES Chio l Result Performing Organization Address City/[facility] Co de Phone Number [facility] [address] [place] [phone] * Hepatitis B Core Antibody, Total (04/14/2025 9:02 AM EST) Pathologist [facility] Hepatitis B Core Antibody Nonreactive Nonreactive [facility] Blood Venous blood specimen / Unknown 04/14/2025 9:02 AM EST 04/14/2025 2:06 PM EST [facility] LAB BLOOD ORDERABLES Chio l Result Performing Organization Address [facility]/ZIP Co de Phone Number [facility] [address] [place] [address] [phone] * RPR (Monitor) with Reflex to??Titer (04/14/2025 9:02 AM EST) RPR (Monitor) w/Refl Titer NON-REACTI VE NON-REACT CRISTINO [facility] Comment:THIS TEST WAS PERFOR MED AT:[facility] [place] [id number] CORTEZ MD Rapid Plasma Reagin Ab Titer TNP [facility] Blood Venous blood specimen / Unknown 04/14/2025 9:02 AM EST 04/14/2025 2:06 PM EST [facility] LAB BLOOD ORDERABLES Chio l Result Performing Organization Address [facility] Co de Phone Number [facility] [address] [place] [phone] * HIV-1/2 Antigen and Antibodies, Fourth Generation, with Reflexes (04/14/2025 9:02 AM EST) HIV AB/AG Nonreactive Nonreactive [facility] Comment:HIV-1 p24 Ag and/or HIV-1/HIV-2 Ab not detected.A test result that is nonreactive does not exclude thepossibility of exposure to or infection with HIV-1 and/orHIV-2. Nonreactive results in this assay for individualswith prior exposure to HIV-1 and/or HIV-2 may be due toantigen and antibody levels that are below the limit ofdetection of this assay.The [facility] HIV Ag/Ab Combo assay result andsupplemental assay results should be interpreted inconjunction with the patient's clinical presentation,history and other laboratory results. If the results areinconsistent with clinical evidence, additional testing issuggested to confirm the result. Blood Venous blood specimen / Unknown 04/14/2025 9:02 AM EST 04/14/2025 2:06 PM EST [facility] LAB BLOOD ORDERABLES Chio l Result Performing Organization Address [facility] Co de Phone Number [facility] [address] [place] [phone] * Hepatitis B Surface Antibody, Qualitative (04/14/2025 9:02 AM EST) ~Hepatitis B Surface Antibody NONREACTIVE Nonreactive [facility] Comment:Nonreactive: < 8.00 mIU/mL Blood Venous blood specimen / Unknown 04/14/2025 9:02 AM EST 04/14/2025 2:06 PM EST [facility] LAB BLOOD ORDERABLES Chio l Result Performing Organization Address [facility] de Phone Number [facility] [address] [place] [phone] * Hemoglobin A1c (04/14/2025 9:02 AM EST) Hemoglobin A1c 5.5 <6.0 % [facility] Comment:Hemoglobin A1C Refer ence Range Adults: 4.8 - 6.0 % Non diabetic: < 6.0 % Goal: < 7.0 %Additional Action Suggested: > 8.0 %Note: Hemoglobin A1c results are invalid for patients with abnormal amounts of HbF. Blood transfusions may impact the HbA1c concentration in the patient sample. Estimated Average Glucose 111 mg/dL [facility] Comment:eAG = Estimated ave rage glucose which is %A1C expressed asaverage glucose, using the formula of the W2I-LhpnzuzJqhwbza Glucose study (ADAG), Diabetes Care, Vol.31,#8,2007 Blood Venous blood specimen / Unknown 04/14/2025 9:02 AM EST 04/14/2025 2:06 PM EST [facility] LAB BLOOD ORDERABLES Chio l Result [facility] [address] [place] [phone] [phone] * (ABNORMAL) Lipid Panel, Standard (04/14/2025 9:02 AM EST) Triglycerides 153(H) <150 mg/dL [facility] Comment:Desirable Triglyceri de: less than 150 mg/dLBorderline High Triglyceride 150-199 mg/dLHigh Triglyceride: 200-499 mg/dLVery High Triglyceride: greater than or equal to 5OO mg/dL Cholesterol 194 <200 mg/dL [facility] Comment:Desirable Cholestero l: less than 200 mg/dLBorderline High Cholesterol: 200-239 mg/dLHigh Cholesterol: greater than 239 mg/dL LDL Cholesterol Calculated 129(H) <100 mg/dL [facility] Comment:Desirable LDL: less than 100 mg/dLNear Optimal/Above Optimal LDL: 110- 129 mg/dLBorderline High LDL: 130-159 mg/dLHigh LDL: 160-189 mg/dLVery High LDL: greater than or equal to 190 mg/dL HDL Cholesterol 35(L) >40 mg/dL [facility] Comment:Desirable HDL: great er than 40 mg/dL Note: This HDL assay may give artificially low results in patients with liver disease. Blood Venous blood specimen / Unknown 04/14/2025 9:02 AM EST 04/14/2025 2:06 PM EST [facility] LAB BLOOD ORDERABLES Chio l Result [facility] [address] [place] [phone] [phone] * (ABNORMAL) Comprehensive Metabolic Panel (04/14/2025 9:02 AM EST) Sodium 139 135 - 145 mmol/L [facility] Potassium 4.3 3.3 - 5.1 mmol/L [facility] Chloride 107 96 - 108 mmol/L [facility] Carbon Dioxide 26 22 - 29 mmol/L [facility] Anion Gap 10(L) 12 - 20 [facility] Urea Nitrogen (BUN) 9 9 - 16 mg/dL [facility] Creatinine, Serum 0.63 0.5 - 1.4 mg/dL [facility] Estimated Glomerular Filt Rate >60 [facility] Comment:Chronic Kidney Disea se: Estimated GFR < 60 mL/min/1.01g7Bulacr Kidney Disease: Estimated GFR < 15 mL/min/1.73m2 Glucose 88 60 - 115 mg/dL [facility] Calcium 9.3 8.4 - 10.2 mg/dL [facility] Bilirubin, Total 0.3 0.0 - 1.0 mg/dL [facility] Aspartate Amino Transferase 32(H) 5 - 31 U/L [facility] Alanine Aminotransferase 28 0 - 31 U/L [facility] Total Protein 7.4 6.5 - 8.0 g/dL [facility] Albumin Level 4.3 3.5 - 5.0 g/dL [facility] Alkaline Phosphatase 61 39 - 117 U/L [facility] Blood Venous blood specimen / Unknown 04/14/2025 9:02 AM EST 04/14/2025 2:06 PM EST [facility] BLOOD ORDERABLES Chio l Result [facility] [address] [place] [address] [phone] * HM PAP/HPV (09/19/2018 12:00 AM EDT) Historical Provider HEALTH MAINTENANCE Final Result from Last 3 Months or Most Recently Relevant to Health Maintenance [place] [address] [place] [address] C3 Care Teams Cook Barbecue Relationship Specialty Start Date End Date Stella Bynum CNP [address] [place] [address] PCP - General Family Medicine 04/09/25
--- OUTSIDE RECORDS SUMMARY | 2025-05-18 12:29 | XMS_ITS | Encounter Summary ---
Author Organization [facility] Address [address] [place] [address] Care Team Providers Care Filling And Stapling Machine Operator Name Role Phone [facility] Primary Care Provider Encounter Details Date Type Department Care Team (Late st Contact Info) Description 03/15/2022 Community Orders [facility] EpicCare Link [address] [place] [address] Nichole Hicks MD [address] [place] [address] Current with uncertain date of last menstrual [...] Industry Job Start Date Job End Date [employer] Not on file Not on file Not on file documented as of this encounter Plan of Treatment Not on file documented as of this encounter Results * Due to [place] state law, this organization might not be [...] 04/09/2022 01:08 pm) PATIENT INFO: ID #: [id number] : [birth year] (31 yrs)(F) Name: JUAN INMAN Visit Date: 04/09/2022 01:03 pm PERFORMED BY: Attending: Roma Cox MD Performed By: Tasha Miller [facility] Referred By: NICHOLE HICKS Location: [facility] Diagnosis and O SERVICE(S) PROVIDED: <14 weeks [address] INDICATIONS: 8 weeks gestation of Z3A.08 Encounter [...] 04/09/2022 01:08 pm) PATIENT INFO: ID #: [id number] : [birth year] (31 yrs)(F) Name: JUAN INMAN Visit Date: 04/09/2022 01:03 pm PERFORMED BY: Attending: Roma Cox MD Performed By: Tasha Miller RDMS Referred By: NICHOLE HICKS Location: [facility] Diagnosis and O SERVICE(S) PROVIDED: <14 weeks [address] INDICATIONS: 8 weeks gestation of Z3A.08 Encounter [...] (HCC) documented in this encounter Care Teams Filling And Stapling Machine Operator Relationship Specialty Start Date End Date [facility] [address] [place] [phone] PCP - General Family Medicine 04/16/23 documented as of this encounter
--- OUTSIDE RECORDS SUMMARY | 2025-05-18 12:29 | XMS_ITS | Encounter Summary ---
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 on file Not on file documented as of this encounter Plan of Treatment Not on file documented as of this encounter Results * Due to [place] state law, this organization might not be [...] 09/04/2022 11:19 am) PATIENT INFO: ID #: [id number] : [birth year] (32 yrs)(F) Name: JUAN INMAN Visit Date: 09/04/2022 11:07 am PERFORMED BY: Attending: Elena Nunez MD PhD Performed By: Stacey Valenzuela RDMS Referred By: NICHOLE DARBY Location: [facility] Diagnosis and O SERVICE(S) PROVIDED: Follow-up exam 09145 INDICATIONS: 29 weeks gestation of Z3A.29 Obesity [...] 09/04/2022 11:19 am) PATIENT INFO: ID #: [id number] : [birth year] (32 yrs)(F) Name: JUAN INMAN Visit Date: 09/04/2022 11:07 am PERFORMED BY: Attending: Elena Nunez MD PhD Performed By: Stacey Valenzuela RDMS Referred By: NICHOLE DARBY Location: [facility] Diagnosis and O SERVICE(S) PROVIDED: Follow-up exam 65910 INDICATIONS: 29 weeks gestation of Z3A.29 Obesity [...] (HCC) documented in this encounter Care Teams Construction Site Manager Relationship Specialty Start Date End Date [facility] [address] [place] [id number] PCP - General Family Medicine 04/16/23 documented as of this encounter
--- OUTSIDE RECORDS SUMMARY | 2025-05-18 12:29 | XMS_ITS | Encounter Summary ---
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 * US OB MFM (01/21/2020 1:46 PM EDT) Anatomical Region Laterality Modality Body, Pelvis N/A Ultrasound 01/21/2020 Narrative 01/21/2020 12:00 AM EDT Obstetric Ultrasound Report Detailed Survey Referral from: IDA BHANDARI MD [facility] Diagnosis and Obstetric Ultras [address] [place] [address] Facsimile PATIENT INFORMATION: Name: JUAN INMAN MR#: [id number] Age: 29 y/o Exam Date: 01/21/2020 : 1990 Visit #: 3 LMP: 08/15/2019 Location: [facility] # Fetuses: 1 INDICATIONS: Z36.3 Screening for [...] amniotic fluid level is also normal by [facility] criteria. Like that WALLY NUNEZ MD, PhD Procedure Note Wally Nunez MD PhD - 01/21/2020 Obstetric Ultrasound Report Detailed Survey Referral from: IDA BHANDARI MD [facility] Diagnosis and ObstetricUltras [address] [place] Facsimile PATIENT INFORMATION: Name: JUAN INMAN MR#: [id number] Age: 29 y/o Exam Date: 01/21/2020 : 1990 Visit #: 3 LMP: 08/15/2019 Location: [facility] # Fetuses: 1 INDICATIONS: Z36.3 Screening for [...] was referred for a follow-up to a [facility] anatomysurvey. On today s transabdominal scan, the [...] (HCC) documented in this encounter Care Teams Final Finisher Forging Dies Relationship Specialty Start Date End Date [facility] [address] [place] [address] PCP - General Family Medicine 04/16/23 documented as of this encounter
--- OUTSIDE RECORDS SUMMARY | 2025-05-18 12:29 | XMS_ITS | Encounter Summary ---
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 Diagnosis and O SERVICE(S) PROVIDED: BPP withOUT NST 87935 Follow-up exam 18916 INDICATIONS: 38 weeks gestation of Z3A.38 Uterine [...] 11/01/2022 11:04 am) PATIENT INFO: ID #: [id number] : [birth year] (32 yrs)(F) Name: JUAN INMAN Visit Date: 11/01/2022 10:52 am PERFORMED BY: Attending: Dimas Ricardo MD Performed By: Franca Schafer RDMS Referred By: NICHOLE DARBY Location: [facility] Diagnosis and O SERVICE(S) PROVIDED: BP withOUT NST 47111 Follow-up exam 73902 INDICATIONS: 38 weeks gestation of Z3A.38 Uterine [...] size date discrepancy , third trimester ([facility]) 38 weeks gestation of (HCC) Obesity complicating , third trimester ([facility]) Maternal care for excessive growth, third trimester, not applicable or unspecified (HCC) documented in this encounter Care Teams Advanced Manufacturing Engineer Relationship Specialty Start Date End Date [facility] [address] [place] [address] PCP - General Family Medicine 04/16/23 documented as of this encounter
--- OUTSIDE RECORDS SUMMARY | 2025-05-18 12:29 | XMS_ITS | Encounter Summary ---
Author Organization [employer] Address [address] [facility] [address] [place] [address] Care Team Providers Care Embossing Machine Operator Helper Name Role Phone Fletcher Chandrakantbullfrancisco GRETEL Primary Care Provider [phone] Encounter Details Date Type Department Care Team (Latest Contact Info) Description 05/13/2025 Travel Social History Tobacco Use Types Packs/Day [...] documented as of this encounter Care Teams Embossing Machine Operator Helper Relationship Specialty Start Date End Date Stella Bynum CNP [address] [place] [id number] PCP - General Family Medicine 04/09/25 documented as of this encounter
--- OUTSIDE RECORDS SUMMARY | 2025-05-18 12:29 | XMS_ITS | Encounter Summary ---
Author Organization [employer] [facility] Address [address] [place] [address] [address] [place] [address] Care Team Providers Care Public Relations Analyst Name Role Phone Kandice Mc Primary Care Provider Inactive/Transferred Primary Care Provider Stella White CNP Primary Care Provider [phone] Encounter Details Date Type Department Care Team (Late st Contact Info) Description 01/05/2024 Orders Only [facility] Case Management [address] [place] [phone] Augusto Stone CHW Social History Tobacco Use [...] on file documented as of this encounter Procedures Procedure Name Priority Date/Time Associated Diagnosis Comments HM PAP/HPV Routine 09/19/2018 12:00 AM EDT documented in this encounter Results * HM PAP/HPV (09/19/2018 12:00 AM EDT) us Historical Provider HEALTH MAINTENANCE Final Result documented in this encounter Visit Diagnoses Not on filedocumented in this encounter Care Teams Public Relations Analyst Relationship Specialty Start Date End Date Kandice Mc FNP PCP - General Family Medicine 11/06/23 03/01/24 Inactive/Transferred PCP - General 03/02/24 12/03/24 Stella Bynum CNP [address] [place] [address] PCP - General Family Medicine 04/09/25 documented as of this encounter
--- OUTSIDE RECORDS SUMMARY | 2025-05-18 12:29 | XMS_ITS | Clinical Summary ---
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 Procedure Name Priority Date/Time Associated Diagnosis Comments PAP W/REFLEX HPV, CONVERSION Routine 08/16/2015 11:16 AM EDT HEPATITIS C ANTIBODY, CONVERSION Routine 06/16/2013 5:02 PM EST from Last 3 Months or Most Recently Relevant to Health Maintenance Results * Due to [place] state law, this organization might not be sharing negative HIV tests. * Pap w/Reflex HPV (08/16/2015 11:16 AM EDT) Path Procedure TPGS (257860) 1 Edited by: [id number] - 1117 JOSE [id number] - 0831 [facility] Specimen Labeled As: 1 CERVICAL/ENDOCERVI JUAN CYTO MATERIAL - Edited by: [id number] - 1117 ANATOLIYMimi [facility] Diagnosis ThinPrep Pap Test Adequacy: Satisfactory for evaluation; scant cellularity Interpretation: Negative for Intraepithelial Lesion or Malignancy Remarks/Recommenda tions: This is the result of a morphological screening test with an inherent possibility of a false negative interpretation. This Pap test was examined in accordance with the [facility] Cytopathology Laboratory written policy, which incorporates all CLIA mandates. Screening guidelines can be found in Am J Clin Pathol 2012;137:516-542. We endorse the practice guidelines developed by ASCCP and published in the Journal Lower Genital Tract Disease 17(5):S1-S27 (2013). This Pap test could not be examined by the ThinPrep Imaging System, [employer], [place], [place], and required a full manual screening. Edited by: [id number] - 2314 [facility] Gynecologic Clinical Data Specimen source:, THINPREP (CERVICAL AND ENDOCERVICAL) [facility] Gynecologic Clinical Data First date of LMP:, WITHIN LAST TWO WEEKS [facility] Gynecologic Clinical Data Clinical Data:, [facility] Pathology Codes Client Order Code:, [email or web address] [facility] Pathology Codes Bill Type:, 3RD CONSTITUTION PARTY BILLING [facility] Marker 1 NUNO APONTE [facility] Marker 2 NILM,NILM [facility] Cc Results To FABIOLA HUDSONINE [facility] [id number] [facility] Signature REPORT SIGNED: NAYA PATTERSON 08/19/15 [facility] Sign Out Audit NAYA PATTERSON [phone] FINAL NEW ELIEZERAGUSTIN [id number] [facility] Cytology / Unknown 6 11:16 AM EDT 08/18/2015 11:16 AM EDT us Nichole Darby MD LAB HISTORICAL RESULTS F inal Result [facility] [address] [place] [address], * HEPATITIS C ANTIBODY, CONVERSION (06/16/2013 5:02 PM EST) Hepatitis C Antibody 0.18 <1.00 [facility] HCV Interpretation Negative [facility] Comment: Not infected with HCV, unless recent infection is suspected or other evidence exists to indicate HCV infection. 06/16/2013 5:02 PM EST 06/16/2013 5:31 PM EST us Xochitl Callahan NP LAB HISTORICAL RESULTS Final Result Performing Organization Address City/[facility]/ZIP Co de Phone Number [facility] [address] [place] [address], from Last 3 Months or Most Recently Relevant to Health Maintenance Insurance [facility] Advance Directives Documents on File Type Date Recorded Patient Javascript Engineer Expl anation Advance Directive 07/08/2015 12:00 AM [...] 9:34 PM 05/23/2020 1:34 PM Care Teams Clinical Data Associate Relationship Specialty Start Date End Date [facility] [address] [place] [address] PCP - General Family Medicine 04/16/23
--- OUTSIDE RECORDS SUMMARY | 2025-05-18 12:29 | XMS_ITS | Encounter Summary ---
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
--- OUTSIDE RECORDS SUMMARY | 2025-05-18 12:29 | XMS_ITS | Encounter Summary ---
Author Organization [employer] Address [address] [facility] [address]t [place] [address] Care Team Providers Care Industrial Waste Inspector Name Role Phone Stella Bynum CNP Primary Care Provider [phone] Encounter Details Date Type Department Care Team ([facility] st Contact Info) Description 04/20/2025 Results Follow-Up [facility] [address] [place] [address] Stella Bynum CNP [address] [place] [address] HIV-1/2 Antigen and Antibodies, Fourth Generation, with Reflexes, Hepatitis C Antibody with Reflex to HCV, RNA, Quantitative, Real-Time PCR, CBC auto differential, Additional followed-up results: 8 Social History Tobacco Use Types Packs/Day Years [...] documented as of this encounter Care Teams Industrial Waste Inspector Relationship Specialty Start Date End Date Stella Bynum CNP [address] [place] [address] PCP - General Family Medicine 04/09/25 documented as of this encounter
== END 2025-05-14 09:19 ==
LOC: HO.LNP 09:18
DX: Z11.51 Encounter for screening for human papillomavirus (HPV) (principal)
CPT/HCPCS: 87626; 88175